=== PATIENT | female | born 1930 | race Caucasian/White ===

== ENCOUNTER → 2016-11-14 | Outpatient (CLI) | payer MEDICARE, BC ==
[~2016-11-14] MED LIST: ALBU17I INH; ASPI1TAB69 PO; ASPI81 PO; ATEN1TAB74 PO; ATEN50TA PO; JANU50TA4 PO; JANU50TA9 PO; PRED50 PO; PRED50TA PO; RAMI5CAP PO; RAMI5CAP7 PO; ROBIACUDC PO; SIMV40TA PO; ZOCO40TA PO
[2016-11-14 10:03] LABS: ALKALINE PHOSPHATASE 61 U/L (45-117); ALT (GPT) 22 U/L (10-53); ANION GAP 8 MEQ/L (5-15); AST (GOT) 13 U/L (15-37); BICARBONATE 24.9 MEQ/L (21.0-32.0); BLOOD UREA NITROGEN 15 MG/DL (7-18); CHLORIDE 109 MEQ/L (98-107); GLOMERULAR FILTRATION RATE 60 ML/MIN (>89); GLUCOSE,FASTING 153 MG/DL (74-99); POTASSIUM 4.1 MEQ/L (3.5-5.1); SODIUM (NA) 142 MEQ/L (136-145); TOTAL BILIRUBIN ADULT 0.4 MG/DL (0.2-1.0)
[2016-11-14 16:04] LABS: HEMOGLOBIN A1a 1.3 %; HEMOGLOBIN A1b 2.2 %; HEMOGLOBIN Ao 82.9 %; HEMOGLOBIN LA1C 2.3 %; HEMOGLOBIN P3 4.2 %
== END ==
LOC: PLAB 06:54
PROVIDERS: ATTEND Family Medicine
DX: E11.9 Type 2 diabetes mellitus without complications (principal)
CPT/HCPCS: 36415; 80053; 83036

== ENCOUNTER 2016-11-25 15:09 | Observation (INO) | payer MEDICARE, BC ==
[~2016-11-25] VITALS: Ht 160 cm; Wt 67.2 kg
[2016-11-25] VITALS (8 sets, daily range): BP systolic 116–149; BP diastolic 69–80; PULSE 68–79; RESP 16–24; TEMP 96.8–98.2; O2SAT 94–98
[~2016-11-25 15:09] MED LIST changes: -ASPI1TAB69 PO; -ATEN50TA PO; -JANU50TA4 PO; -PRED50 PO; -RAMI5CAP PO; -SIMV40TA PO
--- NOTE | 2016-11-25 15:48 | PD ---
HPI Chief Complaint: Dizziness Time Seen by Provider: 15:45 Travel History International Travel<30 days: No Contact w/Intl Traveler<30days: No Traveled to known affect area: No History of Present Illness HPI This 86-year-old female says she had an onset of shortness of breath and chest heaviness about 2 hours ago. She was at rest when it started. The heaviness in the shortness of breath have been persistent until now.. She is not aware of any fever or chills. She has had a cough for a couple of days. She saw her doctor last Saturday for routine checkup and everything was okay then. She does have a history of diabetes and hypertension. She has no history of heart disease. She has never smoked. She has no history of blood clots PFSH Past Medical History High Cholesterol: Yes Diabetes: Yes Diminished Hearing: No Hypertension: Yes Menopausal: Yes Past Surgical History Cholecystectomy: Yes Social History Alcohol Use: No Tobacco Use: No Substance Use: No Allergies-Medications (Allergen,Severity, Reaction): Coded Allergies: Septra (Verified Allergy, Unknown, 11/25/16) PT STATES NOT ALLERGIC. Reported Meds & Prescriptions Reported Meds & Active Scripts Active Robitussin Ac Udc (Guaifenesin/Codeine Phosphate) 10 Ml Syrp 10 Ml PO Q6H PRN Deltasone (Prednisone) 50 Mg Tab 50 Mg PO DAILY Proventil Mdi (Albuterol Sulfate) 17 Gm Aero 2 Puff INH QID PRN Reported Zocor (Simvastatin) 40 Mg Tab 40 Mg PO HS Aspirin 81 Mg Tab 81 Mg PO DAILY Janumet (Sitagliptin Phosphate/Metformin HCl) 1 Tab Tab 1 Tab PO BID ADMINISTER WITH MEALS Altace (Ramipril) 5 Mg Cap 5 Mg PO Tenormin (Atenolol) 50 Mg Tab 50 Mg PO Review of Systems General / Constitutional: No: Fever Eyes: No: Diploplia HENT: No: Headaches, Vertigo Cardiovascular: Positive: Chest Pain or Discomfort (heaviness), No: Irregular Rhythm Respiratory: Positive: Cough, Shortness of Breath, No: Wheezing, Orthopnea Gastrointestinal: No: Vomiting, Diarrhea Genitourinary: No: Urgency, Frequency Musculoskeletal: No: Myalgias Psychiatric: No: Anxiety Hematologic/Lymphatic: No: Easy Bruising Physical Exam Narrative GENERAL: Well-developed female. She is having labored respirations on arrival SKIN: Warm and dry. HEAD: Atraumatic. Normocephalic. EYES: Pupils equal and round. No scleral icterus. No injection or drainage. ENT: No nasal bleeding or discharge. Mucous membranes pink and moist. NECK: Trachea midline. No JVD. CARDIOVASCULAR: Regular rate and rhythm. No murmur appreciated. RESPIRATORY: No accessory muscle use. Clear to auscultation. Breath sounds equal bilaterally. GASTROINTESTINAL: Abdomen soft, non-tender, nondistended. Hepatic and splenic margins not palpable. MUSCULOSKELETAL: No obvious deformities. No clubbing. No cyanosis. No edema. NEUROLOGICAL: Awake and alert. No obvious cranial nerve deficits. Motor grossly within normal limits. Normal speech. PSYCHIATRIC: Appropriate mood and affect; insight and judgment normal. Data Data Last Documented VS Vital Signs Date Time Temp Pulse Resp B/P Pulse Ox O2 Delivery O2 Flow Rate FiO2 11/25/16 16:02 74 18 131/70 95 Room Air 11/25/16 15:33 97.5 Orders Electrocardiogram (11/25/16 15:45) Complete Blood Count With Diff (11/25/16 15:45) Comprehensive Metabolic Panel (11/25/16 15:45) Troponin I (11/25/16 15:45) B-Type Natriuretic Peptide (11/25/16 15:45) Prothrombin Time / Inr (Pt) (11/25/16 15:45) Act Partial Throm Time (Ptt) (11/25/16 15:45) D-Dimer (11/25/16 15:45) Magnesium (Mg) (11/25/16 15:45) Chest, Pa & Lat (11/25/16 15:45) Influenzae A/B Antigen (11/25/16 15:48) Arterial Blood Gas (Abg) (11/25/16 16:55) Labs Laboratory Tests Test 11/25/16 11/25/16 15:50 17:03 White Blood Count 9.9 TH/MM3 Red Blood Count 4.74 MIL/MM3 Hemoglobin 14.4 GM/DL Hematocrit 42.9 % Mean Corpuscular Volume 90.5 FL Mean Corpuscular Hemoglobin 30.5 PG Mean Corpuscular Hemoglobin 33.7 % Concent Red Cell Distribution Width 12.3 % Platelet Count 258 TH/MM3 Mean Platelet Volume 8.4 FL Neutrophils (%) (Auto) 49.5 % Lymphocytes (%) (Auto) 35.6 % Monocytes (%) (Auto) 7.0 % Eosinophils (%) (Auto) 4.8 % Basophils (%) (Auto) 3.1 % Neutrophils # (Auto) 4.9 TH/MM3 Lymphocytes # (Auto) 3.5 TH/MM3 Monocytes # (Auto) 0.7 TH/MM3 Eosinophils # (Auto) 0.5 TH/MM3 Basophils # (Auto) 0.3 TH/MM3 CBC Comment DIFF FINAL Differential Comment Prothrombin Time 10.1 SEC Prothromb Time International 0.9 RATIO Ratio Activated Partial 23.9 SEC Thromboplast Time D-Dimer Quantitative (PE/DVT) 0.46 MG/L FEU Sodium Level 142 MEQ/L Potassium Level 3.8 MEQ/L Chloride Level 108 MEQ/L Carbon Dioxide Level 25.1 MEQ/L Anion Gap 9 MEQ/L Blood Urea Nitrogen 14 MG/DL Creatinine 0.86 MG/DL Estimat Glomerular Filtration 63 ML/MIN Rate Random Glucose 121 MG/DL Calcium Level 9.2 MG/DL Magnesium Level 2.1 MG/DL Total Bilirubin 0.4 MG/DL Aspartate Amino Transf 13 U/L (AST/SGOT) Alanine Aminotransferase 22 U/L (ALT/SGPT) Alkaline Phosphatase 63 U/L Troponin I LESS THAN 0.02 NG/ML B-Type Natriuretic Peptide 24 PG/ML Total Protein 7.2 GM/DL Albumin 3.8 GM/DL Blood Gas Puncture Site LT RADIAL Blood Gas Patient Temperature 98.6 Blood Gas HCO3 21 mmol/L Blood Gas Base Excess -1.7 mmol/L Blood Gas Oxygen Saturation 97 % Arterial Blood pH 7.55 Arterial Blood Partial 24 mmHG Pressure CO2 Arterial Blood Partial 88 mmHG Pressure O2 Arterial Blood Oxygen Content 18.6 Vol % Arterial Blood 1.6 % Carboxyhemoglobin Arterial Blood Methemoglobin 1.1 % Blood Gas Hemoglobin 13.6 G/DL Oxygen Delivery Device ROOM AIR Blood Gas Inspired Oxygen 21 % [facility] Medical Decision Making Medical Screen Exam Complete: Yes Emergency Medical Condition: Yes Medical Record Reviewed: Yes Differential Diagnosis Differential includes CHF, coronary artery disease, anxiety, Narrative Course Chest x-ray is negative. Troponin is normal. BNP is normal. D-dimer is also normal patient continued to have some labored breathing. A blood gas was done and shows pH of 7.54 PCO2 23 and PO2 of 87. She has not been taking aspirin. He does describe a persistent heaviness in her chest. She'll be admitted to the chest pain center Diagnosis Primary Impression: Chest heaviness Additional Impression: Dyspnea Qualified Code: R06.00 - Dyspnea, unspecified type Admitting Information Admitting Physician Requests: Jefferson Serrano MD Nov 25, 2016 15:48
[2016-11-25 16:09] LABS: AUTOMATED NEUTROPHIL # 4.9 TH/MM3 (1.8-7.7); BASOPHIL # 0.3 TH/MM3 (0-0.2); BASOPHIL % 3.1 % (0.0-2.0); EOSINOPHIL # 0.5 TH/MM3 (0-0.4); EOSINOPHIL % 4.8 % (0.0-4.0); HEMATOCRIT 42.9 % (35.0-46.0); HEMO FLAGS DIFF FINAL; LYMPH % 35.6 % (9.0-44.0); LYMPHOCYTE # 3.5 TH/MM3 (1.0-4.8); MEAN CELL VOLUME 90.5 FL (80.0-100.0); MEAN CORPUSCULAR HEMOGLOBIN 30.5 PG (27.0-34.0); MEAN CORPUSCULAR HGB CONC 33.7 % (32.0-36.0); NEUT % 49.5 % (16.0-70.0); PLATELET COUNT 258 TH/MM3 (150-450); RED BLOOD COUNT 4.74 MIL/MM3 (4.00-5.30); RED CELL DISTRIBUTION WIDTH 12.3 % (11.6-17.2); WHITE BLOOD COUNT 9.9 TH/MM3 (4.0-11.0)
[2016-11-25 16:31] LABS: CHLORIDE 108 MEQ/L (98-107); POTASSIUM 3.8 MEQ/L (3.5-5.1); SODIUM (NA) 142 MEQ/L (136-145)
[2016-11-25 16:34] LABS: ANION GAP 9 MEQ/L (5-15); BICARBONATE 25.1 MEQ/L (21.0-32.0); BLOOD UREA NITROGEN 14 MG/DL (7-18); MAGNESIUM 2.1 MG/DL (1.5-2.5)
[2016-11-25 16:37] LABS: ALT (GPT) 22 U/L (10-53); AST (GOT) 13 U/L (15-37); GLOMERULAR FILTRATION RATE 63 ML/MIN (>89)
[2016-11-25 16:39] LABS: TOTAL BILIRUBIN ADULT 0.4 MG/DL (0.2-1.0)
[2016-11-25 16:40] LABS: ALKALINE PHOSPHATASE 63 U/L (45-117)
[2016-11-25 16:58] LABS: APTT (PATIENT) 23.9 SEC (24.3-30.1); INTERNATIONAL NORMALIZED RATIO 0.9 RATIO; PROTHROMBIN TIME - PATIENT 10.1 SEC (9.8-11.6)
--- NOTE | 2016-11-25 17:03 | RADHPO ---
EXAM DATE/TIME: 11/25/2016 16:36 [facility] COMPARISON: No previous studies available for comparison. INDICATIONS : Short of breath MEDICAL HISTORY : None. SURGICAL HISTORY : None. ENCOUNTER: Initial ACUITY: 1 day PAIN SCORE: 0/10 LOCATION: Bilateral chest FINDINGS: PA and lateral views of the chest demonstrate the lungs to be symmetrically aerated without evidence of mass, infiltrate or effusion. The cardiomediastinal contours are unremarkable. Osseous structure s are intact.CONCLUSION: No acute disease. Bryce Cintron MD FACR on November 25, 2016 at 17:02 Board Certified Radiologist. This report was verified electronically.
[2016-11-25 17:11] LABS: BLOOD GAS BASE EXCESS -1.7 mmol/L (-2-2); BLOOD GAS CARBOXYHEMOGLOBIN 1.6 % (0-4); BLOOD GAS HCO3 21 mmol/L (22-26); BLOOD GAS METHEMOGLOBIN 1.1 % (0-2); BLOOD GAS O2 HGB SATURATION 97 % (90-100); BLOOD GAS OXYGEN CONTENT 18.6 Vol % (12.0-20.0); BLOOD GAS PO2 88 mmHG (61-120); BLOOD GAS TOTAL HGB 13.6 G/DL (12.0-16.0); CRITICAL VALUE YES; DRAW SITE LT RADIAL; FIO2 21 %; NUMBER OF ARTERIAL PUNCTURES 1; OXYGEN DEVICE ROOM AIR; STAT YES; TEMP CORR TO 98.6; ULNAR PULSE PRESENT
[2016-11-25 17:12] LABS: BLOOD GAS PCO2 24 mmHG (38-42)
[2016-11-25] MEDS ORDERED: ASPIRIN 325 MG TAB PO ONE (17:45)
[2016-11-25] MEDS ORDERED: LORazepam 2 MG/ML VIAL IV PUSH ONE (17:45)
[2016-11-25] MEDS ORDERED: GLUCAGON 1 MG/ML VIAL OTHER PRN (18:15)
[2016-11-25] MEDS ORDERED: DEXTROSE 50% IN WATER 50 ML VIAL(D50) IV PUSH PRN (18:15)
[2016-11-25] MEDS ORDERED: SODIUM CHLORIDE 0.9% FLUSH 5 ML FLUSH FLUSH PRN (18:15)
[2016-11-25] MEDS: INSULIN ASPART SUPPLEMENTAL SCALE SQ SCH (20:44)
[2016-11-25] MEDS: SODIUM CHLORIDE 0.9% FLUSH 5 ML FLUSH FLUSH SCH (20:44)
[2016-11-25] MEDS ORDERED: ATEN50TA PO (21:11)
[2016-11-25] MEDS ORDERED: ASPI1TAB69 PO (21:11)
[2016-11-25] MEDS ORDERED: JANU50TA4 PO (21:12)
[2016-11-25] MEDS ORDERED: PRED50 PO (21:12)
[2016-11-25] MEDS ORDERED: SIMV40TA PO (21:13)
[2016-11-25] MEDS ORDERED: RAMI5CAP PO (21:13)
[2016-11-25 23:44] LABS: CREATINE KINASE 66 U/L (26-192)
[2016-11-26] VITALS: BP 133/80; PULSE 75; RESP 20; TEMP 96.6; O2SAT 94
[2016-11-26 00:10] VITALS: PULSE 76
[2016-11-26 04:00] VITALS: BP 134/81; PULSE 65; RESP 20; TEMP 96.8; O2SAT 96
[2016-11-26] MEDS: INSULIN ASPART SUPPLEMENTAL SCALE SQ SCH (06:31)
[2016-11-26 07:17] LABS: CREATINE KINASE 45 U/L (26-192)
[2016-11-26 08:00] VITALS: BP 124/80; PULSE 72; RESP 20; TEMP 97.7; O2SAT 95
[2016-11-26] MEDS: SODIUM CHLORIDE 0.9% FLUSH 5 ML FLUSH FLUSH SCH (08:48)
--- NOTE | 2016-11-26 10:47 | HHI.DCPOC ---
Discharge Care Plan Diagnosis: (1) Dyspnea Goals to Promote Your Health * To prevent worsening of your condition and complications * To maintain your health at the optimal level Directions to Meet Your Goals Take your medications as prescribed Follow your dietary instruction Follow activity as directed Keep your appointments as scheduled Take your immunizations and boosters as scheduled If your symptoms worsen call your PCP, if no PCP go to Urgent Care Center or Emergency Room Smoking is Dangerous to Your Health. Avoid second hand smoke Call the 24-hour hour crisis hotline for domestic abuse at Macrina Yousif MD Nov 26, 2016 10:47
--- NOTE | 2016-11-26 10:51 | HHI.HP ---
[facility] [place] [facility] Katie Rios MD Admission Diagnosis DYSPNEA, CHEST HEAVINESS Diagnoses: Chief Complaint: Shortness of breath Travel History International Travel<30 Days: No Contact w/Intl Traveler <30 Da: No Traveled to Known Affected Are: No History of Present Illness Patient is an 86-year-old female with no past cardiac history other than hypertension who came to the emergency room with acute onset of increased shortness of breath at work of breathing while at rest and suddenly in onset. There are no relieving or artery factors. This seemed to resolve on its own. She did have a blood gas, cardiac enzymes, EKG and chest x-ray which on my review are unremarkable for acute findings. Patient's symptoms recurred 6 years ago she had a heart catheterization without any cardiac findings. Patient this time appears to perhaps have had anxiety reaction. She reports increasing psychosocial stressors over the last several weeks. Care plan and discharge plans discussed with patient, nursing team and spouse at bedside. Review of Systems Constitutional: DENIES: Diaphoretic episodes, Fatigue, Fever, Weight gain, Weight loss, Chills, Dizziness, Change in appetite, Night Sweats Endocrine: DENIES: Heat/cold intolerance Eyes: DENIES: Blurred vision, Eye pain Ears, nose, mouth, throat: DENIES: Tinnitus, Hearing loss, Vertigo, Nasal discharge, Oral lesions, Throat pain, Hoarseness, Ear Pain, Running Nose, Epistaxis, Sinus Pain, Toothache, Odynophagia Respiratory: COMPLAINS OF: Shortness of breath, DENIES: Apneas, Cough, Snoring , Wheezing, Hemoptysis, Sputum production Cardiovascular: COMPLAINS OF: Palpitations, DENIES: Chest pain, Syncope, Dyspnea on Exertion, PND, Lower Extremity Edema, Orthopnea, Claudication Gastrointestinal: DENIES: Abdominal pain, Black stools, Bloody stools, Constipation, Diarrhea, Nausea, Vomiting, Difficulty Swallowing, Anorexia Genitourinary: DENIES: Abnormal vaginal bleeding, Dysmenorrhea, Dyspareunia, Sexual dysfunction, Urinary frequency, Urinary incontinence, Urgency, Hematuria , Dysuria, Nocturia, Vaginal discharge Musculoskeletal: DENIES: Joint pain, Muscle aches, Stiffness, Joint Swelling, Back pain, Neck pain Integumentary: DENIES: Abnormal pigmentation, Pruritus, Rash, Nail changes, Breast masses, Breast skin changes, Nipple discharge Hematologic/lymphatic: DENIES: Bruising, Lymphadenopathy Immunologic/allergic: DENIES: Eczema, Urticaria Neurologic: DENIES: Abnormal gait, Headache, Localized weakness, Paresthesias, Seizures, Speech Problems, Tremor, Poor Balance Psychiatric: DENIES: Anxiety, Confusion, Mood changes, Depression, Hallucinations, Agitation, Suicidal Ideation, Homicidal Ideation, Delusions Past Family Social History Past Medical History Diabetes hypertension Diabetes Past Surgical History Cholecystectomy Reported Medications Reviewed in the medical record Allergies: Coded Allergies: Septra (Verified Allergy, Unknown, 11/25/16) PT STATES NOT ALLERGIC. Active Ordered Medications Reviewed in the the medical record Family History No family history of premature cardiac disease per patient Social History No tobacco or alcohol dependency, lives with her family Physical Exam Vital Signs Vital Signs Date Time Temp Pulse Resp B/P Pulse Ox O2 Delivery O2 Flow Rate FiO2 11/26/16 08:00 97.7 72 20 124/80 95 11/26/16 08:00 72 11/26/16 04:00 96.8 65 20 134/81 96 11/26/16 00:10 76 11/26/16 00:00 96.6 75 20 133/80 94 11/25/16 20:44 72 18 129/69 95 11/25/16 20:25 94 21 11/25/16 20:00 96.8 68 16 149/80 95 11/25/16 19:10 18 95 Room Air 11/25/16 19:10 98.2 78 18 125/71 95 Room Air 11/25/16 18:18 72 18 139/77 97 11/25/16 18:01 77 24 142/72 98 Room Air 11/25/16 16:02 74 18 131/70 95 Room Air 11/25/16 15:59 98 Room Air 11/25/16 15:33 97.5 79 16 116/76 98 Physical Exam GENERAL: This is a well-nourished, well-developed patient, in no apparent distress. SKIN: No rashes, ecchymoses or lesions. Cool and dry. HEAD: Atraumatic. Normocephalic. No temporal or scalp tenderness. EYES: Pupils equal round and reactive. Extraocular motions intact. No scleral icterus. No injection or drainage. ENT: Nose without bleeding, purulent drainage or septal hematoma. Throat without erythema, tonsillar hypertrophy or exudate. Uvula midline. Airway patent. NECK: Trachea midline. No JVD or lymphadenopathy. Supple, nontender, no meningeal signs. CARDIOVASCULAR: Regular rate and rhythm without murmurs, gallops, or rubs. RESPIRATORY: Clear to auscultation. Breath sounds equal bilaterally. No wheezes , rales, or rhonchi. GASTROINTESTINAL: Abdomen soft, non-tender, nondistended. No hepato-splenomegaly , or palpable masses. No guarding. MUSCULOSKELETAL: Extremities without clubbing, cyanosis, or edema. No joint tenderness, effusion, or edema noted. No calf tenderness. Negative Homans sign bilaterally. NEUROLOGICAL: Awake and alert. Cranial nerves II through XII intact. Motor and sensory grossly within normal limits. Five out of 5 muscle strength in all muscle groups. Normal speech. Laboratory Laboratory Tests Test 11/25/16 11/25/16 11/25/16 11/26/16 15:50 17:03 22:52 05:50 White Blood Count 9.9 Red Blood Count 4.74 Hemoglobin 14.4 Hematocrit 42.9 Mean Corpuscular Volume 90.5 Mean Corpuscular Hemoglobin 30.5 Mean Corpuscular Hemoglobin 33.7 Concent Red Cell Distribution Width 12.3 Platelet Count 258 Mean Platelet Volume 8.4 Neutrophils (%) (Auto) 49.5 Lymphocytes (%) (Auto) 35.6 Monocytes (%) (Auto) 7.0 Eosinophils (%) (Auto) 4.8 Basophils (%) (Auto) 3.1 Neutrophils # (Auto) 4.9 Lymphocytes # (Auto) 3.5 Monocytes # (Auto) 0.7 Eosinophils # (Auto) 0.5 Basophils # (Auto) 0.3 CBC Comment DIFF FINAL Differential Comment Prothrombin Time 10.1 Prothromb Time International 0.9 Ratio Activated Partial 23.9 Thromboplast Time D-Dimer Quantitative (PE/DVT) 0.46 Sodium Level 142 Potassium Level 3.8 Chloride Level 108 Carbon Dioxide Level 25.1 Anion Gap 9 Blood Urea Nitrogen 14 Creatinine 0.86 Estimat Glomerular Filtration 63 Rate Random Glucose 121 Calcium Level 9.2 Magnesium Level 2.1 Total Bilirubin 0.4 Aspartate Amino Transf 13 (AST/SGOT) Alanine Aminotransferase 22 (ALT/SGPT) Alkaline Phosphatase 63 Troponin I LESS THAN 0.02 LESS THAN 0.02 LESS THAN 0.02 B-Type Natriuretic Peptide 24 Total Protein 7.2 Albumin 3.8 Blood Gas Puncture Site LT RADIAL Blood Gas Patient Temperature 98.6 Blood Gas HCO3 21 Blood Gas Base Excess -1.7 Blood Gas Oxygen Saturation 97 Arterial Blood pH 7.55 Arterial Blood Partial 24 Pressure CO2 Arterial Blood Partial 88 Pressure O2 Arterial Blood Oxygen Content 18.6 Arterial Blood 1.6 Carboxyhemoglobin Arterial Blood Methemoglobin 1.1 Blood Gas Hemoglobin 13.6 Oxygen Delivery Device ROOM AIR Blood Gas Inspired Oxygen 21 Total Creatine Kinase 66 45 Date/Time Procedure Status Source Growth 11/25/16 15:57 Influenza Types A,B Antigen (SHANA) - Final Complete Nasal Washing NEGATIVE FOR FLU A AND B ANTIGEN.... Result Diagram: 11/25/16 1550 11/25/16 1550 Imaging Last Impressions Chest X-Ray 11/25/16 1545 Signed Impressions: Service Date/Time: Friday, November 25, 2016 16:36 - CONCLUSION: No acute disease. Bryce Cintron MD FACR Assessment and Plan Problem List: (1) Dyspnea ICD Code: R06.00 Status: Acute Plan: Issues appear resolved. No findings of acute cardiac or pulmonary disease at this time. Patient seems to perhaps have had anxiety reaction. Discussed at length with patient and spouse. They will need to follow-up with her primary care physician. Assessment and Plan Discharge home Activity unrestricted Diet regular Follow with PCP 1 week Problem Qualifiers (1) Dyspnea: Qualified Code: R06.00 - Dyspnea, unspecified type Macrina Yousif MD Nov 26, 2016 10:51
--- NOTE | 2016-11-26 19:37 | EKG ---
Date Performed: 11/25/2016 Time Performed: 15:39:10 PTAGE: 86 years EKG: Sinus rhythm . Leftward axis Inferior ST changes are nonspecific Borderline ECG PREVIOUS TRACING : 12/03/2009 08.42 DOCTOR: Miguel A Pittman Interpretating Date/Time 11/26/2016 19:33:29
== END 2016-11-26 11:30 | disposition home or self-care (01) ==
LOC: PHEFT 15:09 → PHEDA 18:01 → PH3A 21:37
PROVIDERS: ADMIT Hospitalist; ATTEND Hospitalist
DX: R07.9 Chest pain, unspecified (principal); R42 Dizziness and giddiness; I10 Essential (primary) hypertension; R94.31 Abnormal electrocardiogram [ECG] [EKG]; E11.9 Type 2 diabetes mellitus without complications; E78.00 Pure hypercholesterolemia, unspecified; Z79.84 Long term (current) use of oral hypoglycemic drugs
CPT/HCPCS: 36600; 71020; 80053; 82550; 82805; 82948; 83735; 83880; 84484; 85025; 85379; 85610; 85730; 87804; 93005; 96374; 99285; G0378; J2060

== ENCOUNTER → 2017-05-01 | Outpatient (CLI) | payer MEDICARE, BC ==
[~2017-05-01] MED LIST changes: -ALBU17I INH; +ASPI1TAB69 PO; -ASPI81 PO; -ATEN1TAB74 PO; +ATEN50TA PO; +JANU50TA4 PO; -JANU50TA9 PO; +PRED50 PO; -PRED50TA PO; +RAMI5CAP PO; -RAMI5CAP7 PO; -ROBIACUDC PO; +SIMV40TA PO; -ZOCO40TA PO
[2017-05-01 09:49] LABS: ANION GAP 8 MEQ/L (5-15); BICARBONATE 26.3 MEQ/L (21.0-32.0); BLOOD UREA NITROGEN 14 MG/DL (7-18); CHLORIDE 106 MEQ/L (98-107); GLUCOSE,FASTING 146 MG/DL (74-99); POTASSIUM 4.6 MEQ/L (3.5-5.1); SODIUM (NA) 140 MEQ/L (136-145)
[2017-05-01 09:55] LABS: ALKALINE PHOSPHATASE 54 U/L (45-117); ALT (GPT) 26 U/L (10-53); AST (GOT) 17 U/L (15-37); GLOMERULAR FILTRATION RATE 70 ML/MIN (>89); TOTAL BILIRUBIN ADULT 0.7 MG/DL (0.2-1.0)
[2017-05-01 09:57] LABS: HDL CHOLESTEROL 65.1 MG/DL (40.0-60.0)
[2017-05-01 10:15] LABS: LDL CHOLESTEROL 38 MG/DL (0-99)
[2017-05-01 13:20] LABS: BACTERIA, URINE OCC /hpf; BLOOD, URINE NEG (NEG); COMMENT (UR) CULT NOT INDICATED; CULTURE IF INDICATED CULT NOT INDICATED; GLUCOSE,URINE NEG (NEG); KETONE, URINE NEG (NEG); MUCUS URINE FEW /lpf (OCC); NITRITE,URINE NEG (NEG); SQUAMOUS EPITHELIAL CELL URINE 7 /hpf (0-5); URINE COLOR YELLOW (YELLW/STRAW)
[2017-05-01 16:47] LABS: HEMOGLOBIN A1a 1.2 %; HEMOGLOBIN A1b 1.3 %; HEMOGLOBIN Ao 82.5 %; HEMOGLOBIN F 1.1 %; HEMOGLOBIN LA1C 2.4 %; HEMOGLOBIN P3 4.1 %
== END ==
LOC: PLAB 06:44
PROVIDERS: ATTEND Family Medicine
DX: I10 Essential (primary) hypertension (principal); E78.5 Hyperlipidemia, unspecified; E11.9 Type 2 diabetes mellitus without complications
CPT/HCPCS: 36415; 80053; 80061; 81001; 83036

== ENCOUNTER 2017-05-21 12:10 | Emergency (ER) | payer MEDICARE, BC ==
[2017-05-21 12:18] VITALS: BP 131/64; PULSE 84; RESP 15; TEMP 99.6; O2SAT 94
--- NOTE | 2017-05-21 12:55 | PD ---
HPI Chief Complaint: Fever Time Seen by Provider: 12:43 Travel History International Travel<30 days: No Contact w/Intl Traveler<30days: No Traveled to known affect area: No History of Present Illness HPI PATIENT STATES THAT SHE IS HERE BECAUSE SHE'S HAD PROD COUGH OF GREEN SPUTUM, LOW GRADE FEVERS OF 101, STATES THAT SHE DOESN'T FEEL WELL...DENIES N/V/D/ PFSH Past Medical History High Cholesterol: Yes Diabetes: Yes Diminished Hearing: No Hypertension: Yes Menopausal: Yes Past Surgical History Cholecystectomy: Yes Social History Alcohol Use: No Tobacco Use: No Substance Use: No Allergies-Medications (Allergen,Severity, Reaction): Coded Allergies: Septra (Verified Allergy, Unknown, 05/21/17) PT STATES NOT ALLERGIC. Reported Meds & Prescriptions Reported Meds & Active Scripts Active Medrol Dosepak (Methylprednisolone) 4 Mg Dspk 4 Mg PO DIRECTED Per Pharmacist direction Ciprofloxacin (Ciprofloxacin HCl) 500 Mg Tab 500 Mg PO BID Proventil Hfa 6.7 GM Inh (Albuterol Sulfate) 90 Mcg/Act Aer 1 Puff INH Q4H PRN Reported Aspirin 81 Mg Chew 81 Mg CHEW DAILY Glipizide ER (Glipizide) 2.5 Mg Ralf 2.5 Mg PO DAILY Take with breakfast or first main meal of the day Nitrofurantoin Monohydrate Macrocrystals (Nitrofurantoin Monoh/Nitrofur Macro) 100 Mg Cap 100 Mg PO BID Simvastatin 40 Mg Tab 20 Mg PO HS Ramipril 5 Mg Cap 5 Mg PO DAILY Prednisone 50 Mg Tab 50 Mg PO DAILY Janumet (Sitagliptin-Metformin) 50-500 Mg Tab 1 Tab PO BID Atenolol 50 Mg Tab 50 Mg PO DAILY Review of Systems Except as stated in HPI: all other systems reviewed are Neg General / Constitutional: Positive: Fever, Chills Respiratory: Positive: Cough Physical Exam Narrative GENERAL: SKIN: Warm and dry. HEAD: Atraumatic. Normocephalic. EYES: Pupils equal and round. No scleral icterus. No injection or drainage. ENT: No nasal bleeding or discharge. Mucous membranes pink and moist. NECK: Trachea midline. No JVD. CARDIOVASCULAR: Regular rate and rhythm. RESPIRATORY: No accessory muscle use. RONCHI BILATERALLY GASTROINTESTINAL: Abdomen soft, non-tender, nondistended. Hepatic and splenic margins not palpable. MUSCULOSKELETAL: Extremities without clubbing, cyanosis, or edema. No obvious deformities. NEUROLOGICAL: Awake and alert. No obvious cranial nerve deficits. Motor grossly within normal limits. Five out of 5 muscle strength in the arms and legs. Normal speech. PSYCHIATRIC: Appropriate mood and affect; insight and judgment normal. Data Data Last Documented VS Vital Signs Date Time Temp Pulse Resp B/P Pulse Ox O2 Delivery O2 Flow Rate FiO2 05/21/17 12:44 16 05/21/17 12:18 99.6 84 131/64 94 Orders Urinalysis - C+S If Indicated (05/21/17 12:47) Group A Rapid Strep Screen (05/21/17 12:47) Influenzae A/B Antigen (05/21/17 12:47) Chest, Pa & Lat (05/21/17 12:47) Strep Culture (Group A) (05/21/17 12:50) Urine Culture (05/21/17 12:50) Labs Laboratory Tests Test 05/21/17 12:50 Urine Collection Type CLEAN CATCH Urine Color YELLOW Urine Turbidity SLIGHTY CLOUDY Urine pH 5.5 Urine Specific Page 1.015 Urine Protein NEG mg/dL Urine Glucose (UA) NEG mg/dL Urine Ketones NEG mg/dL Urine Occult Blood NEG Urine Nitrite NEG Urine Bilirubin NEG Urine Leukocyte Esterase MOD Urine RBC 0-3 /hpf Urine WBC 3-5 /hpf Urine Squamous Epithelial 0-5 /hpf Cells Urine Bacteria MOD /hpf Microscopic Urinalysis Comment CULTURE INDICATED MDM Medical Decision Making Medical Screen Exam Complete: Yes Emergency Medical Condition: Yes Medical Record Reviewed: Yes Differential Diagnosis FLU V PNA V STREP V VIRAL ILLNESS Narrative Course PT EVALUATED FOUND TO HAVE UTI, STREP AND FLU NEG, AND CXR SHOWS SOME SLIGHT EARLY INFILTRATES ON RLL WITHOUT CONSOLIDATION Diagnosis Primary Impression: ACUTE BACTERIAL BRONCHITIS Additional Impression: UTI Scripts Fluconazole (Diflucan)150 Mg [id number] Mg PO ONCE #1 TAB Ref 0 Prov:Ethan Engle MD 05/21/17 Methylprednisolone Dosepak (Medrol Dosepak)4 Mg Dspk4 Mg PO DIRECTED #1 DSPK Per Pharmacist direction Prov:Ethan Engle MD 05/21/17 Ciprofloxacin 500 Mg [id number] Mg PO BID #20 TAB Prov:Ethan Engle MD 05/21/17 Albuterol 6.7 GM Inh (Proventil Hfa 6.7 GM Inh)90 Mcg/Act Aer1 Puff INH Q4H PRN (SHORTNESS OF BREATH) #1 INHALER Prov:Ethan Engle MD 05/21/17 Disposition: 01 DISCHARGE HOME Condition: Stable Ethan Engle MD May 21, 2017 12:55
[2017-05-21] MEDS ORDERED: NITR100C4 PO (13:23)
[2017-05-21] MEDS ORDERED: ASPI81CH CHEW (13:23)
[2017-05-21] MEDS ORDERED: GLIP1TAB60 PO (13:23)
[2017-05-21 13:29] VITALS: BP 121/71; PULSE 53; RESP 16; O2SAT 96
[2017-05-21 13:35] LABS: BLOOD, URINE NEG (NEG); GLUCOSE,URINE NEG (NEG); KETONE, URINE NEG (NEG); NITRITE,URINE NEG (NEG); PH, URINE 5.5 (5.0-8.5)
[2017-05-21 13:46] LABS: METHOD OF COLLECTION CLEAN CATCH; URINE COLOR YELLOW (YELLW/STRAW)
[2017-05-21 13:47] LABS: BACTERIA, URINE MOD /hpf; COMMENT (UR) CULTURE INDICATED; CULTURE IF INDICATED CULTURE INDICATED; RBC, URINE 0-3 /hpf (0-3); SQUAMOUS EPITHELIAL CELL URINE 0-5 /hpf (0-5)
[2017-05-21] MEDS ORDERED: MEDR4PAK PO (14:24)
[2017-05-21] MEDS ORDERED: CIPR500T2 PO (14:24)
[2017-05-21] MEDS ORDERED: ALBU6.7H INH (14:24)
[2017-05-21] MEDS ORDERED: DIFL150T PO (14:32)
--- NOTE | 2017-05-21 15:11 | RADRPT ---
EXAM DATE/TIME: 05/21/2017 13:05 [facility] COMPARISON: CHEST PA & LAT, November 25, 2016, 16:36. INDICATIONS : Cough, fever, and dizziness since this morning. MEDICAL HISTORY : None. SURGICAL HISTORY : None. ENCOUNTER: Initial ACUITY: 1 day PAIN SCORE: 0/10 LOCATION: Bilateral chest FINDINGS: The lungs are clear without infiltrate, nodule, or mass. There is no appreciable pleural effusion fo r technique. Heart and mediastinum are unremarkable. There are degenerative changes within the thora cic spine and the bony structures appear slightly osteopenic. There are atherosclerotic calcification s of the aorta due to chronic atherosclerotic disease. CONCLUSION: No acute cardiopulmonary disease. Narcisa Saucedo MD on May 21, 2017 at 15:09 Board Certified Radiologist. This report was verified electronically.
== END 2017-05-21 14:51 | disposition home or self-care (01) ==
LOC: PHED 12:10
DX: J20.8 Acute bronchitis due to other specified organisms (principal); B95.4 Other streptococcus as the cause of diseases classified elsewhere; N39.0 Urinary tract infection, site not specified; I10 Essential (primary) hypertension
CPT/HCPCS: 71020; 81001; 87081; 87086; 87804; 87880; 99284

== ENCOUNTER → 2017-05-29 | Outpatient (CLI) | payer MEDICARE, BC ==
[~2017-05-29] MED LIST changes: +ALBU6.7H INH; -ASPI1TAB69 PO; +ASPI81CH CHEW; +CIPR500T2 PO; +DIFL150T PO; +GLIP1TAB60 PO; +MEDR4PAK PO; +NITR100C4 PO
== END ==
LOC: PLAB 09:28
PROVIDERS: ATTEND Family Medicine
DX: N39.0 Urinary tract infection, site not specified (principal)
CPT/HCPCS: 87086

== ENCOUNTER → 2017-07-08 | Outpatient (CLI) | payer MEDICARE, BC ==
[~2017-07-08] MED LIST changes: +AUGM875T3 PO
[2017-07-08 08:52] LABS: PROTHROMBIN TIME - PATIENT 10.7 SEC (9.8-11.6)
[2017-07-08 09:37] LABS: AUTOMATED NEUTROPHIL # 3.7 TH/MM3 (1.8-7.7); BASOPHIL % 0.7 % (0.0-2.0); EOSINOPHIL # 0.3 TH/MM3 (0-0.4); HEMO FLAGS DIFF FINAL; LYMPH % 39.8 % (9.0-44.0); MEAN CELL VOLUME 90.7 FL (80.0-100.0); MEAN CORPUSCULAR HEMOGLOBIN 30.4 PG (27.0-34.0); MEAN CORPUSCULAR HGB CONC 33.5 % (32.0-36.0); MONO % 5.5 % (0.0-8.0); PLATELET COUNT 210 TH/MM3 (150-450); RED BLOOD COUNT 4.52 MIL/MM3 (4.00-5.30); RED CELL DISTRIBUTION WIDTH 13.8 % (11.6-17.2); WHITE BLOOD COUNT 7.5 TH/MM3 (4.0-11.0)
[2017-07-08 10:08] LABS: ANION GAP 5 MEQ/L (5-15); AST (GOT) 17 U/L (15-37); BICARBONATE 28.3 MEQ/L (21.0-32.0); BLOOD UREA NITROGEN 12 MG/DL (7-18); CHLORIDE 108 MEQ/L (98-107); GLOMERULAR FILTRATION RATE 67 ML/MIN (>89); GLUCOSE,FASTING 164 MG/DL (74-99); POTASSIUM 4.3 MEQ/L (3.5-5.1); SODIUM (NA) 141 MEQ/L (136-145)
[2017-07-08 10:10] LABS: ALT (GPT) 26 U/L (10-53)
[2017-07-08 10:12] LABS: ALKALINE PHOSPHATASE 46 U/L (45-117); TOTAL BILIRUBIN ADULT 0.7 MG/DL (0.2-1.0)
[2017-07-08 13:42] LABS: BACTERIA, URINE MOD /hpf; BLOOD, URINE NEG (NEG); COMMENT (UR) CULTURE INDICATED; CULTURE IF INDICATED CULTURE INDICATED; GLUCOSE,URINE TRACE mg/dL (NEG); KETONE, URINE NEG (NEG); MUCUS URINE FEW /lpf (OCC); NITRITE,URINE NEG (NEG); SQUAMOUS EPITHELIAL CELL URINE 9 /hpf (0-5); URINE COLOR YELLOW (YELLW/STRAW)
[2017-07-08 15:32] LABS: HEMOGLOBIN A1a 1.3 %; HEMOGLOBIN A1b 2.4 %; HEMOGLOBIN Ao 82.2 %; HEMOGLOBIN LA1C 2.6 %
== END ==
LOC: PLAB 07:04
PROVIDERS: ATTEND Family Medicine
DX: E11.9 Type 2 diabetes mellitus without complications (principal); I10 Essential (primary) hypertension; R82.99 Other abnormal findings in urine; Z01.818 Encounter for other preprocedural examination
CPT/HCPCS: 36415; 80053; 81001; 83036; 85025; 85610; 87086

== ENCOUNTER → 2017-07-17 | Day surgery (SDC) | payer MEDICARE, BC ==
[~2017-07-17] MED LIST changes: +CHLORHEXIDINE GLUCONATE 2 % 1 PACK (2 CLOTHS) TOPICAL PRN; +DEXAMETHASONE SOD PHOS 4 MG/ML VIAL ONE; +FAMOTIDINE 20 MG/2 ML VIAL ONE; +INSULIN HUMAN REGULAR 1,000 UNITS/10 ML VIAL SQ PRN; +LACTATED RINGER'S 1000 ML INJ 1,000 ML IV ONE; +LACTATED RINGER'S 1000 ML IV PRN; +METOPROLOL TARTRATE 25 MG TAB PO PRN; +MIDAZOLAM HCL 2 MG/2 ML VIAL ONE; +ONDANSETRON HCL 4 MG/2 ML VIAL IV PUSH ONE; +PHENYLEPH/NS 1000 MCG/10 ML SYR IV ONE; +POVIDONE IODINE 5% (ANTISEPSIS KIT) 4 APPLICATIONS EACH NARE PRN; +PROMETHAZINE INJ 25 MG/ML VIAL ONE; +PROPOFOL 200 MG/20 ML AMP IV ONE; +SODIUM CHLORID 0.9% 500 ML IV PRN; +SODIUM CHLORIDE 0.9% 20 ML VIAL ONE; +VASOPRESSIN 20 UNITS/ML VIAL (IVTITR) ONE; +ceFAZolin 1,000 MG/NS 100 ML IV SCH; +ePHEDrine/NS 25 MG/5 ML SYR IV ONE
[2017-07-17 08:35] LABS: AUTOMATED NEUTROPHIL # 3.7 TH/MM3 (1.8-7.7); BASOPHIL # 0.2 TH/MM3 (0-0.2); BASOPHIL % 2.7 % (0.0-2.0); BLOOD, URINE NEG (NEG); EOSINOPHIL # 0.3 TH/MM3 (0-0.4); EOSINOPHIL % 3.4 % (0.0-4.0); GLUCOSE,URINE NEG (NEG); HEMATOCRIT 40.8 % (35.0-46.0); HEMO FLAGS DIFF FINAL; KETONE, URINE NEG (NEG); LYMPH % 38.5 % (9.0-44.0); MEAN CORPUSCULAR HEMOGLOBIN 30.3 PG (27.0-34.0); MEAN CORPUSCULAR HGB CONC 33.3 % (32.0-36.0); MONO % 6.2 % (0.0-8.0); NEUT % 49.2 % (16.0-70.0); NITRITE,URINE NEG (NEG); PH, URINE 5.5 (5.0-8.5); PLATELET COUNT 221 TH/MM3 (150-450); RED BLOOD COUNT 4.48 MIL/MM3 (4.00-5.30); WHITE BLOOD COUNT 7.7 TH/MM3 (4.0-11.0)
[2017-07-17 08:42] LABS: URINE COLOR YELLOW (YELLW/STRAW); WBC, URINE 0-2 /hpf (0-5)
[2017-07-17 08:43] LABS: COMMENT (UR) CULT NOT INDICATED; CULTURE IF INDICATED CULT NOT INDICATED; METHOD OF COLLECTION CATH; SQUAMOUS EPITHELIAL CELL URINE 0-5 /hpf (0-5)
[2017-07-17 11:45] VITALS: PULSE 77
--- NOTE | 2017-07-17 12:27 | PD.OP ---
Operative Report Date of Surgery: Jul 17, 2017 Preoperative Diagnosis: (1) Perineocele (2) Cystocele with uterine descensus (3) Incomplete uterine prolapse (4) Chest heaviness (5) Dyspnea Postoperative Diagnosis: (1) Dyspnea (2) Chest heaviness (3) Perineocele (4) Cystocele with uterine descensus (5) Incomplete uterine prolapse Procedure: Lefort colpocleisis endometrial biopsy perineoplasty Anesthesia: Dr. Ybarra, pudendal block + sedation w/LMA Surgeon: Symone Owens Director [facility](s): n/a Resident Surgeon: n/a Operation and Findings: Indications: This patient has a protruding cystocele with incomplete uterine prolapse, and patulous vaginal opening. She was unable to retain a pessary. She denies urinary incontinence or difficulty evacuating bowel. Procedure: The patient was taken to the OR where she was laid supine and general anesthesia was induced with LMA used. Dr. Pennington then administered a pudendal block after the patient was placed in low stirrups with SCDs on. Betadine prep used and Cobian Catheter placed. The cervix was grasped with a single-tooth tenaculum. The cervix was dilated enough to accept a Pipelle, which yielded only a scant amount of tissue for endometrial biopsy. This was done because the uterus will be permanently inaccessible after the procedure. The prolapse repair was then mapped out such that a 5x6 cm rectangle of mucosa is removed from both the anterior and posterior vagina. This was demarcated by scoring with a #15 blade. Then saline injection was used to lift the mucosa from the underlying connective tissue. The mucosa was removed in four pieces from the anterior and posterior vaginal durant using careful and tedious dissection. Bovie cautery was used as needed to maintain hemostasis. The anterior and posterior vaginal durant were then stitched together at the superior borders of the denuded vaginal durant, taking care to avoid bunching or plication. This effectively imbricated the cervix. The right borders were also sutured together. 2-0 Vicryl was used for this. Then using 3-0 Vicryl, the anterior and posterior durant were stitched together right to left in rows, again taking care to avoid plication, with each row of sutures ending at the left borders, which were thus united. On reaching the inferior border of the denuded areas, 2-0 was again used to approximate the mucosal edges. Attention was then turned to the perineum with an inverted triangle of skin scored on the perineum. The skin within that triangle was removed. The vaginal mucosa abutting this triangle was also lifted and removed, allowing vertical closure of the defect created. Before this closure was done, the bulbocavernosi and the transverse perinei were brought together in the midline, thus re- creating the perineal body and repairing the perineocele. 2-0 Vicryl was used for this in [id number] fashion x2. The perineal skin and vaginal mucosa were then closed with 3-0 Vicryl subcuticularly in the midline, completing the repair. A long Margarita was used to make sure that a mucosal "tunnel" on each side of the repair is patent to allow drainage. Rectal exam confirmed the surgical field was flat and well-apposed, and the rectal mucosa was intact. The Cobian catheter placed in the bladder in the pre-op area was left in place throughout the procedure. The patient was awakened and transferred to the recovery room breathing on her own. Sponge, needle and instrument counts were correct. Symone Owens MD Jul 17, 2017 12:27
[2017-07-17 15:00] VITALS: BP 120/66; PULSE 77; RESP 16; TEMP 98.2; O2SAT 97
== END | disposition home or self-care (01) ==
LOC: PHSDC 06:19
PROVIDERS: ATTEND Obstetrics & Gynecology
DX: N81.81 Perineocele (principal); N81.2 Incomplete uterovaginal prolapse; R06.00 Dyspnea, unspecified; E11.9 Type 2 diabetes mellitus without complications; Z79.84 Long term (current) use of oral hypoglycemic drugs
CPT/HCPCS: 00940; 00942; 36415; 56810; 57120; 58120; 81001; 82948; 85025; 88305; J0690; J1100; J2250; J2370; J2405; J2550; J3010; J7120

== ENCOUNTER 2017-07-25 23:43 | Inpatient (IN) | payer MEDICARE, BC ==
[~2017-07-25] VITALS: Ht 162.6 cm; Wt 69.8 kg
[~2017-07-25 23:43] MED LIST changes: -ALBU6.7H INH; -AUGM875T3 PO; -CHLORHEXIDINE GLUCONATE 2 % 1 PACK (2 CLOTHS) TOPICAL PRN; -CIPR500T2 PO; -DEXAMETHASONE SOD PHOS 4 MG/ML VIAL ONE; -DIFL150T PO; -FAMOTIDINE 20 MG/2 ML VIAL ONE; -INSULIN HUMAN REGULAR 1,000 UNITS/10 ML VIAL SQ PRN; -LACTATED RINGER'S 1000 ML INJ 1,000 ML IV ONE; -LACTATED RINGER'S 1000 ML IV PRN; -MEDR4PAK PO; -METOPROLOL TARTRATE 25 MG TAB PO PRN; -MIDAZOLAM HCL 2 MG/2 ML VIAL ONE; -NITR100C4 PO; -ONDANSETRON HCL 4 MG/2 ML VIAL IV PUSH ONE; -PHENYLEPH/NS 1000 MCG/10 ML SYR IV ONE; -POVIDONE IODINE 5% (ANTISEPSIS KIT) 4 APPLICATIONS EACH NARE PRN; -PRED50 PO; -PROMETHAZINE INJ 25 MG/ML VIAL ONE; -PROPOFOL 200 MG/20 ML AMP IV ONE; -SODIUM CHLORID 0.9% 500 ML IV PRN; -SODIUM CHLORIDE 0.9% 20 ML VIAL ONE; -VASOPRESSIN 20 UNITS/ML VIAL (IVTITR) ONE; -ceFAZolin 1,000 MG/NS 100 ML IV SCH; -ePHEDrine/NS 25 MG/5 ML SYR IV ONE
[2017-07-26] VITALS (8 sets, daily range): BP systolic 104–140; BP diastolic 53–102; PULSE 75–113; RESP 16–30; TEMP 97.9–100.9; O2SAT 92–99
[2017-07-26] MEDS ORDERED: PIPERACIL-TAZO 4.5 GM PREMIX 100 ML IV SCH ×2 (00:30→07:00)
[2017-07-26] MEDS ORDERED: VANCOMYCIN 1,000 MG/NS 250 ML IV SCH ×2 (00:30)
[2017-07-26] MEDS: SODIUM CHLOR 0.9% 1000 ML INJ 1,000 ML IV SCH ×3 (00:30→14:46)
[2017-07-26] MEDS ORDERED: SODIUM CHLOR 0.9% 1000 ML INJ 1,000 ML IV SCH ×2 (01:00→03:00)
[2017-07-26] MEDS ORDERED: ACETAMINOPHEN 325 MG TAB PO SCH (01:00)
[2017-07-26] MEDS ORDERED: POTASSIUM CHLORIDE 20 MEQ CONTROLLED RELEASE TAB PO SCH (03:00)
[2017-07-26] MEDS ORDERED: GLUCAGON 1 MG/ML VIAL OTHER PRN (04:15)
[2017-07-26] MEDS ORDERED: DEXTROSE 50% IN WATER 50 ML VIAL(D50) IV PUSH PRN (04:15)
[2017-07-26 04:33] LABS: AUTOMATED NEUTROPHIL # 9.3 TH/MM3 (1.8-7.7); BASOPHIL # 0.1 TH/MM3 (0-0.2); BASOPHIL % 0.7 % (0.0-2.0); EOSINOPHIL # 0.1 TH/MM3 (0-0.4); EOSINOPHIL % 0.6 % (0.0-4.0); HEMATOCRIT 35.4 % (35.0-46.0); HEMO FLAGS AUTO DIFF; LYMPH % 5.1 % (9.0-44.0); LYMPHOCYTE # 0.5 TH/MM3 (1.0-4.8); MEAN CELL VOLUME 89.2 FL (80.0-100.0); MEAN CORPUSCULAR HEMOGLOBIN 30.1 PG (27.0-34.0); MEAN CORPUSCULAR HGB CONC 33.8 % (32.0-36.0); MONO % 4.8 % (0.0-8.0); NEUT % 88.8 % (16.0-70.0); PLATELET COUNT 182 TH/MM3 (150-450); RED BLOOD COUNT 3.97 MIL/MM3 (4.00-5.30); RED CELL DISTRIBUTION WIDTH 12.4 % (11.6-17.2); WHITE BLOOD COUNT 10.5 TH/MM3 (4.0-11.0)
[2017-07-26 04:34] LABS: PLATELET ESTIMATE SMEAR NORMAL (NORMAL); PLATELET MORPHOLOGY NORMAL (NORMAL); SCAN/DIFF AUTO DIFF CONFIRMED
[2017-07-26 04:36] LABS: ALKALINE PHOSPHATASE 61 U/L (45-117); AST (GOT) 25 U/L (15-37); BLOOD UREA NITROGEN 16 MG/DL (7-18); GLOMERULAR FILTRATION RATE 53 ML/MIN (>89)
[2017-07-26 04:37] LABS: ALT (GPT) 30 U/L (10-53); ANION GAP 10 MEQ/L (5-15); BICARBONATE 21.6 MEQ/L (21.0-32.0); CHLORIDE 106 MEQ/L (98-107); POTASSIUM 3.4 MEQ/L (3.5-5.1); SODIUM (NA) 138 MEQ/L (136-145); TOTAL BILIRUBIN ADULT 0.7 MG/DL (0.2-1.0)
[2017-07-26 04:51] LABS: BLOOD, URINE MOD (NEG); GLUCOSE,URINE 250 mg/dL (NEG); KETONE, URINE TRACE mg/dL (NEG); NITRITE,URINE NEG (NEG); PH, URINE 5.5 (5.0-8.5)
[2017-07-26 04:52] LABS: URINE COLOR YELLOW (YELLW/STRAW)
[2017-07-26 04:53] LABS: BACTERIA, URINE MOD /hpf; COMMENT (UR) CULTURE INDICATED; CULTURE IF INDICATED CULTURE INDICATED; SQUAMOUS EPITHELIAL CELL URINE 0-5 /hpf (0-5); WBC, URINE INNUM /hpf (0-5)
--- NOTE | 2017-07-26 04:58 | PD ---
HPI Chief Complaint: General Weakness Time Seen by Provider: 04:45 Travel History International Travel<30 days: No Contact w/Intl Traveler<30days: No Traveled to known affect area: No History of Present Illness HPI 86-year-old female presents to the emergency department by EMS transport from home for evaluation of generalized weakness and fever. Patient was noted by EMS to have temperature elevation of water to .6 F have episode of bilious emesis and was administered 1 L of normal saline en route. Patient was found prior to arrival to the emergency department at home sitting on her stairs unable to get up secondary to generalized weakness. Patient recently was started on Cipro antibiotic for urinary tract infection. Patient also recently had surgery 8 days ago to have repair of a cystocele and uterine prolapse. Patient underwent colpocleisis and peroneoplasty by Dr Owens. Patient has had no issues postoperatively with pain in the groin or arm perineum or buttock area. No drainage. Patient has had mild cough nonproductive and no hemoptysis as well as no shortness of breath. Patient has had no lower extremity pain or swelling. Has been reports that patient has been to a fairly well until 7 PM on evening she was going to watch TV but when she didn't return at 8 PM he went up and checked on her and identified her to have a shaking chill at that time he recommended that she go to the hospital but she refused. There has reports she went to sleep at 9 PM and then awakened around 11 or 11:30 identifying that she was sitting on the stairs and was too weak to stand. called 911 to have the patient transported to the emergency department. Patient is also diabetic but blood sugars have been well-controlled. [facility] Past Medical History Narrative Medical Diabetes dyslipidemia hypertension, bladder prolapse, uterine prolapse, colpocleisis perineoplasty cholecystectomy; no tobacco use no alcohol use; nursing notes reviewed Cancer: Yes (SKIN) Cardiovascular Problems: No High Cholesterol: Yes Diabetes: Yes Patient Takes Glucophage: Yes (GLIPIZIDE) Diminished Hearing: No Endocrine: No Genitourinary: No Hepatitis: No Hiatal Hernia: No Hypertension: Yes Immune Disorder: No Musculoskeletal: Yes (ARTHRITIS) Neurologic: No Psychiatric: No Reproductive: No Respiratory: No Thyroid Disease: No Tetanus Vaccination: Unknown Influenza Vaccination: Yes Menopausal: Yes Past Surgical History Abdominal Surgery: Yes (MULUGETA) AICD: No Cholecystectomy: Yes Genitourinary Surgery: Yes Gynecologic Surgery: Yes Joint Replacement: No Pacemaker: No Other Surgery: Yes Social History Alcohol Use: No Tobacco Use: No Substance Use: No Allergies-Medications (Allergen,Severity, Reaction): Coded Allergies: sulfamethoxazole (Verified Allergy, Severe, Nausea/Vomiting, 07/17/17) trimethoprim (Verified Allergy, Severe, Nausea/Vomiting, 07/17/17) Reported Meds & Prescriptions Reported Meds & Active Scripts Active Reported Aspirin 81 Mg Chew 81 Mg CHEW DAILY Glipizide ER (Glipizide) 2.5 Mg Ralf 2.5 Mg PO TIDAC Take with breakfast or first main meal of the day Simvastatin 40 Mg Tab 20 Mg PO HS Ramipril 5 Mg Cap 5 Mg PO DAILY Janumet (Sitagliptin-Metformin) 50-500 Mg Tab 1 Tab PO BID Atenolol 50 Mg Tab 50 Mg PO DAILY Narrative Medication Ciprofloxacin Review of Systems Except as stated in HPI: all other systems reviewed are Neg General / Constitutional: Positive: Fever, Chills HENT: No: Congestion Cardiovascular: No: Chest Pain or Discomfort Respiratory: Positive: Cough, No: Shortness of Breath Gastrointestinal: Positive: Vomiting (x1), No: Nausea, Abdominal Pain Genitourinary: No: Dysuria, Pelvic Pain, Flank Pain Musculoskeletal: No: Myalgias, Arthralgias, Cramping, Edema, Pain Skin: No Rash Neurologic: Positive: Weakness, No: Dizziness, Syncope, Focal Abnormalities, Coordination Problem Endocrine: No: Heat Intolerance Hematologic/Lymphatic: No: Easy Bruising Physical Exam Narrative GENERAL: Well-developed well-nourished female in no acute distress no respiratory distress; T:99.3f; hr:113; rr:30; bp: 140/102; o2sat 2 l/m nc 97% SKIN: Warm and dry. HEAD: Normocephalic. EYES: No scleral icterus. No injection or drainage. NECK: Supple, trachea midline. No JVD or lymphadenopathy. CARDIOVASCULAR: Regular rate and rhythm without murmurs, gallops, or rubs. RESPIRATORY: Breath sounds equal bilaterally. No accessory muscle use. GASTROINTESTINAL: Abdomen soft, non-tender, nondistended. /pelvic: No redness no induration no drainage sutures in place MUSCULOSKELETAL: No cyanosis, or edema. BACK: Nontender without obvious deformity. No CVA tenderness. Data Data Last Documented VS Vital Signs Date Time Temp Pulse Resp B/P (MAP) Pulse Ox O2 Delivery O2 Flow Rate FiO2 07/26/17 00:00 99.6 113 30 140/102 (115) 97 07/26/17 00:00 Nasal Cannula 3.00 Orders Orders Vancomycin Inj (Vancomycin Inj) (07/26/17 00:30) Piperacil-Tazo 4.5 Gm Premix (Zosyn 4.5 (07/26/17 00:30) Sodium Chlor 0.9% 1000 Ml Inj (Ns 1000 M (07/26/17 00:30) Acetaminophen (Tylenol) (07/26/17 01:00) Sodium Chlor 0.9% 1000 Ml Inj (Ns 1000 M (07/26/17 01:00) Piperacil-Tazo 4.5 Gm Premix (Zosyn 4.5 (07/26/17 07:00) Enoxaparin Inj (Lovenox Inj) (07/26/17 09:00) Pantoprazole (Protonix) (07/26/17 09:00) Dextrose 50% In Clarissa (Vial) Inj (D50w (Vi (07/26/17 04:15) Glucagon Inj (Glucagon Inj) (07/26/17 04:15) Insulin Aspart Supplemtl Scale (Novolog (07/26/17 08:00) Sodium Chlor 0.9% 1000 Ml Inj (Ns 1000 M (07/26/17 03:00) Potassium Chloride (Kcl) (07/26/17 03:00) Complete Blood Count With Diff (07/26/17 00:00) Comprehensive Metabolic Panel (07/26/17 00:00) Troponin I (07/26/17 00:00) Lactic Acid Sepsis Protocol (07/26/17 00:00) Blood Culture (07/26/17 00:00) Blood Culture (07/26/17 00:05) Labs Laboratory Tests Test 07/26/17 00:00 White Blood Count 10.5 TH/MM3 Red Blood Count 3.97 MIL/MM3 Hemoglobin 12.0 GM/DL Hematocrit 35.4 % Mean Corpuscular Volume 89.2 FL Mean Corpuscular Hemoglobin 30.1 PG Mean Corpuscular Hemoglobin Concent 33.8 % Red Cell Distribution Width 12.4 % Platelet Count 182 TH/MM3 Mean Platelet Volume 8.7 FL Neutrophils (%) (Auto) 88.8 % Lymphocytes (%) (Auto) 5.1 % Monocytes (%) (Auto) 4.8 % Eosinophils (%) (Auto) 0.6 % Basophils (%) (Auto) 0.7 % Neutrophils # (Auto) 9.3 TH/MM3 Lymphocytes # (Auto) 0.5 TH/MM3 Monocytes # (Auto) 0.5 TH/MM3 Eosinophils # (Auto) 0.1 TH/MM3 Basophils # (Auto) 0.1 TH/MM3 CBC Comment AUTO DIFF Differential Comment AUTO DIFF CONFIRMED Platelet Estimate NORMAL Platelet Morphology Comment NORMAL Red Cell Morphology Comment NORMAL Blood Urea Nitrogen 16 MG/DL Creatinine 1.00 MG/DL Random Glucose 261 MG/DL Total Protein 6.6 GM/DL Albumin 3.2 GM/DL Calcium Level 8.2 MG/DL Alkaline Phosphatase 61 U/L Aspartate Amino Transf (AST/SGOT) 25 U/L Alanine Aminotransferase (ALT/SGPT) 30 U/L Total Bilirubin 0.7 MG/DL Sodium Level 138 MEQ/L Potassium Level 3.4 MEQ/L Chloride Level 106 MEQ/L Carbon Dioxide Level 21.6 MEQ/L Anion Gap 10 MEQ/L Estimat Glomerular Filtration Rate 53 ML/MIN Lactic Acid Level 2.9 mmol/L Troponin I LESS THAN 0.02 NG/ML MDM Medical Decision Making Medical Screen Exam Complete: Yes Emergency Medical Condition: Yes Medical Record Reviewed: Yes Interpretation(s) CBC was automated differential total white cell count 10,500 but left shift of 88% normal platelet count 182,000 Lactic acid is elevated 2.6 Urinalysis abnormal cloudy innumerable white blood cells and moderate bacteria culture indicated Metabolic panel remarkable for random glucose of 260 and bicarbonate with BUN 16 and creatinine of 1.0 Chest x-ray reveals no infiltrates Differential Diagnosis Sepsis UTI pneumonia wound infection dehydration PE Narrative Course IV access obtained specimens collected and sent for resulting patient administered additional IV fluid bolus Zosyn 4.5 g and vancomycin 1 g IV piggyback administered Repeat temperature shows fever patient administered Tylenol and additional IV fluid bolus patient's case discussed with on-call medicine for admission CBC was automated differential total white cell count 10,500 but left shift of 88% normal platelet count 182,000 Lactic acid is elevated 2.6 Urinalysis abnormal cloudy innumerable white blood cells and moderate bacteria culture indicated Metabolic panel remarkable for random glucose of 260 and bicarbonate with BUN 16 and creatinine of 1.0 Chest x-ray reveals no infiltrates Discussed with Dr Hdz for admission failed outpatient therapy for UTI with sepsis Critical Care Narrative Aggregate critical care time was 35 minutes. Time to perform other separately billable procedures was not included in the critical care time. My time did not include minutes spent treating any other patients simultaneously or on activities that did not directly contribute to the patient's treatment. The services I provided to this patient were to treat and/or prevent clinically significant deterioration that could result in: septic shock, I provided critical care services requiring my management, as noted below: Chart data review, documentation time, medication orders and management, vital sign assessments/reviewing monitor data, ordering and reviewing lab tests, ordering and interpreting/reviewing x-rays and diagnostic studies, care of the patient and discussion of the patient with the admitting physicians. Sepsis Criteria SIRS Criteria (2 or more): Temp > 100.9 or < 96.8, Heart rate over 90, RR > 20 or PaCO2 < 32 Sepsis Criteria (SIRS+source): Infect source susp/known (urine) Physician Communication Physician Communication discussed with DR Hdz Diagnosis Primary Impression: Sepsis Qualified Codes: A41.9 - Sepsis, unspecified organism Additional Impression: UTI (urinary tract infection) Qualified Codes: N39.0 - Urinary tract infection, site not specified Admitting Information Admitting Physician Requests: it Makenna Arredondo MD Jul 26, 2017 04:58
[2017-07-26] MEDS ORDERED: SODIUM CHLORIDE 0.9% FLUSH 10 ML FLUSH IVF PRN (05:45)
[2017-07-26] MEDS: LOW DOSE INSULIN NOVOLOG SUPPLEMENTAL SCALE SQ SCH ×4 (08:00→20:56)
--- NOTE | 2017-07-26 08:57 | RADRPT ---
EXAM DATE/TIME: 07/26/2017 01:11 [facility] COMPARISON: CHEST SINGLE AP, January 21, 2014, 9:26. INDICATIONS : Fever MEDICAL HISTORY : None. SURGICAL HISTORY : None. ENCOUNTER: Initial ACUITY: 1 day PAIN SCORE: 0/10 LOCATION: Bilateral chest FINDINGS: A single view of the chest demonstrates the lungs to be symmetrically aerated without evidence of mas s, infiltrate or effusion. The cardiomediastinal contours are unremarkable. Osseous structures are intact with some degenerative spurring of the dorsal spine. CONCLUSION: No acute cardiopulmonary process to explain current clinical symptoms. Alan Bone MD on July 26, 2017 at 1:49 Board Certified Radiologist. This report was verified electronically.
[2017-07-26] MEDS: PANTOPRAZOLE SOD 40 MG DELAYED RELEASE TAB PO SCH (09:06)
[2017-07-26] MEDS: SODIUM CHLORIDE 0.9% FLUSH 10 ML FLUSH IV FLUSH SCH ×2 (09:06→20:56)
[2017-07-26] MEDS: ENOXAPARIN SODIUM 40 MG/0.4 ML SYRINGE SQ SCH (09:07)
[2017-07-26] MEDS ORDERED: ONDANSETRON HCL 4 MG/2 ML VIAL IV PRN (10:45)
--- NOTE | 2017-07-26 11:36 | EKG ---
Date Performed: 07/26/2017 Time Performed: 00:04:10 PTAGE: 86 years EKG: SINUS TACHYCARDIA POSSIBLE LEFT ATRIAL ENLARGEMENT BORDERLINE LEFT AXIS DEVIATION NONSPECIF IC T-WAVE ABNORMALITY ABNORMAL RHYTHM ECG Compared to prior tracing no significant change PREVIOUS TRACING : 11/25/2016 15.39 DOCTOR: Cole Lanier Interpretating Date/Time 07/26/2017 11:35:37
[2017-07-26] MEDS ORDERED: TEMAZEPAM 15 MG CAP PO PRN (14:30)
[2017-07-26] MEDS ORDERED: MAGNESIUM HYDROXIDE SUSP 30 ML CUP PO PRN (14:30)
[2017-07-26] MEDS ORDERED: DOCUSATE SODIUM 100 MG CAP PO PRN (14:30)
[2017-07-26] MEDS ORDERED: CALCIUM CARBONATE 500 MG CHEWABLE TAB CHEW PRN (14:30)
[2017-07-26] MEDS ORDERED: ACETAMINOPHEN 325 MG TAB PO PRN (14:30)
[2017-07-26] MEDS: PIPERACIL-TAZO 2.25 GM PREMIX 50 ML IV SCH ×2 (14:46→20:56)
--- NOTE | 2017-07-26 16:19 | HHI.FF ---
Face to Face Verification Diagnosis: (1) Generalized weakness (2) Sepsis (3) UTI (urinary tract infection) Physical Therapy Order: Evaluate and Treat, Improve ambulation, Strength and gait training I have seen patient Maria Luz Parekh on 07/26/17. My clinical findings support the need for the requested home health care services because: Deconditioned w/ increased weakness I certify that my clinical findings support that this patient is homebound because: Unsteady gait/balance Afshin Perez Jul 26, 2017 16:19
--- NOTE | 2017-07-26 17:38 | HHI.HP ---
[facility] Katie Rios MD Admission Diagnosis sepsis; uti Diagnoses: (1) Severe sepsis Diagnosis: Principal (2) Febrile illness Diagnosis: Principal (3) Urinary tract infection Diagnosis: Principal (4) Generalized weakness Diagnosis: Principal Chief Complaint: Profound weakness Travel History International Travel<30 Days: No Contact w/Intl Traveler <30 Da: No Traveled to Known Affected Are: No Sepsis Criteria SIRS Criteria (2 or more): Temp > 100.9 or < 96.8, Heart rate over 90 Sepsis Criteria (SIRS+source): Infect source susp/known Severe Sepsis (+one): Lactate >2 Criteria Outcome: Meets severe sepsis criteria History of Present Illness Written by Afshin Perez, acting as scribe for Dr. Bennett on 07/26/17 at 17:28. 86-year-old female known history of hypertension, hyperlipidemia, diabetes who presented to hospital because of profound weakness. Patient is in a normal state of health and is undergoing outpatient management by Dr. Owens because of recent surgery. Patient did undergo surgery on July 17, 2017 which include endometrial biopsy, perineoplasty, lefort colpocleisis. Patient was doing well and went for follow-up appointment on Saturday. At that time she was found to have a urinary tract infection. Patient was given Cipro in which she took only 1 dose after obtaining the prescription. Patient was doing well and she was with her watching TV he thought she walked out to go to the restroom, however he heard a noise and apparently she had started walking down the stairs and got significantly weak to where she fell backwards onto the stair and was trying to get herself up by holding onto the railing. That was too weak to do so. Her was not able to help her get up so they called the ambulance and she was brought to the hospital for evaluation. Patient had workup done in found to have severe sepsis criteria with low-grade fever, tachycardia, lactic acidosis, urinary tract infection. Is recommended by ER physician that the patient be admitted for further evaluation and management. The patient does admit to profound weakness, unable to stand. She did have some nausea this morning where she cannot eat any but she did have a small piece of toast. She denies any abdominal pain, diarrhea, constipation, cp , sob, also denies fevers or chills. Review of Systems Neurologic: COMPLAINS OF: Abnormal gait, Poor Balance Except as stated in HPI: all other systems reviewed are Neg Past Family Social History Past Medical History Hypertension Hyperlipidemia Diabetes Past Surgical History Cholecystectomy Lefort colpocleisis Endometrial biopsy Perineoplasty Reported Medications Reported Meds & Active Scripts Active Reported Aspirin 81 Mg Chew 81 Mg CHEW DAILY Glipizide ER (Glipizide) 2.5 Mg Ralf 2.5 Mg PO TIDAC Take with breakfast or first main meal of the day Simvastatin 40 Mg Tab 20 Mg PO HS Ramipril 5 Mg Cap 5 Mg PO DAILY Janumet (Sitagliptin-Metformin) 50-500 Mg Tab 1 Tab PO BID Atenolol 50 Mg Tab 50 Mg PO DAILY Allergies: Coded Allergies: sulfamethoxazole (Verified Allergy, Severe, Nausea/Vomiting, 07/17/17) trimethoprim (Verified Allergy, Severe, Nausea/Vomiting, 07/17/17) Family History Reviewed is significant for mother at age 62 with breast cancer, father at age 80 with stomach cancer, sister at age 54 with breast cancer Social History Patient denies any tobacco, alcohol or illicit drugs Physical Exam Vital Signs Vital Signs Date Time Temp Pulse Resp B/P (MAP) Pulse Ox O2 Delivery O2 Flow Rate FiO2 07/26/17 16:30 98.8 75 20 108/53 (71) 92 07/26/17 15:53 07/26/17 14:51 100.0 07/26/17 11:26 97 Room Air 07/26/17 11:00 99.2 89 18 109/53 (71) 97 Room Air 07/26/17 07:18 99 Nasal Cannula 2.00 07/26/17 07:14 98.8 89 18 108/53 (71) 99 Nasal Cannula 2.00 07/26/17 04:55 99 Nasal Cannula 3.00 07/26/17 04:55 100 20 104/59 (74) 99 Nasal Cannula 3.00 07/26/17 00:50 100.9 112 30 129/64 (85) 98 Nasal Cannula 3.00 07/26/17 00:00 99.6 113 30 140/102 (115) 97 07/26/17 00:00 Nasal Cannula 3.00 Physical Exam GENERAL: Well-developed, well-nourished, in no acute distress. alert and orientated HEENT: Head is normocephalic without any lesions or masses noted. Facial features are symmetric. Eyes: Pupils equal round reactive to light. Extraocular muscles are intact. Conjunctivae were clear. Oropharyngeal: Pharynx without any erythema edema. Tongue is midline without deviation. Buccal mucosa is moist without any masses or lesions NECK: Supple without any masses. Trachea midline no deviation. No JVD, no bruits are appreciated CARDIAC: Regular rhythm, regular rate. S1/S2 are heard. 2/6 ejection murmur noted, no gallops or rubs. LUNGS: Clear to auscultation bilaterally. No wheeze, rhonchi or rales. No use of accessory muscles on inspiration or expiration. ABDOMEN: Soft, nontender. Nondistended. Bowel sounds heard in all 4 quadrants. No organomegaly or masses. Negative rebound, negative guarding EXTREMITIES: No edema, pulses are equal bilaterally. No cyanosis or clubbing NEUROLOGY: Mood and affect appear appropriate. Cranial nerves II through XII grossly intact. Muscle strength 5/5 in upper and lower extremities bilaterally. Deep tendon reflexes are 2+ in upper and lower extremities bilaterally. Laboratory Laboratory Tests Test 07/26/17 00:00 07/26/17 01:35 07/26/17 03:04 White Blood Count 10.5 Red Blood Count 3.97 Hemoglobin 12.0 Hematocrit 35.4 Mean Corpuscular Volume 89.2 Mean Corpuscular Hemoglobin 30.1 Mean Corpuscular Hemoglobin Concent 33.8 Red Cell Distribution Width 12.4 Platelet Count 182 Mean Platelet Volume 8.7 Neutrophils (%) (Auto) 88.8 Lymphocytes (%) (Auto) 5.1 Monocytes (%) (Auto) 4.8 Eosinophils (%) (Auto) 0.6 Basophils (%) (Auto) 0.7 Neutrophils # (Auto) 9.3 Lymphocytes # (Auto) 0.5 Monocytes # (Auto) 0.5 Eosinophils # (Auto) 0.1 Basophils # (Auto) 0.1 CBC Comment AUTO DIFF Differential Comment AUTO DIFF CONFIRMED Platelet Estimate NORMAL Platelet Morphology Comment NORMAL Red Cell Morphology Comment NORMAL Blood Urea Nitrogen 16 Creatinine 1.00 Random Glucose 261 Total Protein 6.6 Albumin 3.2 Calcium Level 8.2 Alkaline Phosphatase 61 Aspartate Amino Transf (AST/SGOT) 25 Alanine Aminotransferase (ALT/SGPT) 30 Total Bilirubin 0.7 Sodium Level 138 Potassium Level 3.4 Chloride Level 106 Carbon Dioxide Level 21.6 Anion Gap 10 Estimat Glomerular Filtration Rate 53 Lactic Acid Level 2.9 2.0 Troponin I LESS THAN 0.02 Urine Color YELLOW Urine Turbidity CLOUDY Urine pH 5.5 Urine Specific [place] 1.022 Urine Protein 30 Urine Glucose (UA) 250 Urine Ketones TRACE Urine Occult Blood MOD Urine Nitrite NEG Urine Bilirubin NEG Urine Leukocyte Esterase LARGE Urine RBC 4-9 Urine WBC INNUM Urine Squamous Epithelial Cells 0-5 Urine Bacteria MOD Microscopic Urinalysis Comment CULTURE INDICATED Date/Time Source Procedure Growth Status 07/26/17 00:05 Blood Peripheral Aerobic Blood Culture Pending Received 07/26/17 00:05 Blood Peripheral Anaerobic Blood Culture Pending Received 07/26/17 01:35 Urine Clean Catch Urine Culture Pending Received Result Diagram: 07/26/17 0000 07/26/17 0000 Imaging Last Impressions Chest X-Ray 07/26/17 0000 Signed Impressions: Service Date/Time: Wednesday, July 26, 2017 01:11 - CONCLUSION: No acute cardiopulmonary process to explain current clinical symptoms. Alan Bone MD Septic Shock Reassessment Heart: Regular rate and rhythm, Murmur Lungs: Clear Skin: Warm, [place] Peripheral Pulses: Bounding Right Radial Bounding Left Radial Capillary Refill: Brisk, <2 seconds Caprini VTE Risk Assessment Caprini VTE Risk Assessment: Mod/High Risk (score >= 2) Caprini Risk Assessment Model Point Value = 1 Point Value = 2 Point Value = 3 Point Value = 5 Age 41-60 Minor surgery BMI > 25 kg/m2 Swollen legs Varicose veins or History of unexplained or recurrent spontaneous Oral contraceptives or hormone replacement Sepsis (< 1 month) Serious lung disease, including pneumonia (< 1 month) Abnormal pulmonary function Acute myocardial infarction Congestive heart failure (< 1 month) History of inflammatory bowel disease Medical patient at bed rest Age 61-74 Arthroscopic surgery Major open surgery (> 45 min) Laparoscopic surgery (> 45 min) Malignancy Confined to bed (> 72 hours) Immobilizing plaster cast Central venous access Age >= 75 History of VTE Family history of VTE Factor V Leiden Prothrombin [id number] Lupus anticoagulant Anticardiolipin antibodies Elevated serum homocysteine Heparin-induced thrombocytopenia Other congenital or acquired thrombophilia Stroke (< 1 month) Elective arthroplasty Hip, pelvis, or leg fracture Acute spinal cord injury (< 1 month) Prophylaxis Regimen Total Risk Factor Score Risk Level Prophylaxis Regimen 0-1 Low Early ambulation 2 Moderate Order ONE of the following: *Sequential Compression Device (SCD) *Heparin 5000 units SQ BID 3-4 Higher Order ONE of the following medications: *Heparin 5000 units SQ TID *Enoxaparin/Lovenox 40 mg SQ daily (WT < 150 kg, CrCl > 30 mL/min) *Enoxaparin/Lovenox 30 mg SQ daily (WT < 150 kg, CrCl > 10-29 mL/min) *Enoxaparin/Lovenox 30 mg SQ BID (WT < 150 kg, CrCl > 30 mL/min) AND/OR *Sequential Compression Device (SCD) 5 or more Highest Order ONE of the following medications: *Heparin 5000 units SQ TID (Preferred with Epidurals) *Enoxaparin/Lovenox 40 mg SQ daily (WT < 150 kg, CrCl > 30 mL/min) *Enoxaparin/Lovenox 30 mg SQ daily (WT < 150 kg, CrCl > 10-29 mL/min) *Enoxaparin/Lovenox 30 mg SQ BID (WT < 150 kg, CrCl > 30 mL/min) AND *Sequential Compression Device (SCD) Assessment and Plan Assessment and Plan Severe sepsis, Patient presented with profound weakness, febrile illness, tachycardia, lactic acidosis, urine tract infection, Patient was given vancomycin and Zosyn in the emergency department Patient was given 2 L normal saline bolus Patient's symptoms have improved. Patient still with low-grade fever, lactic acid has returned to normal Urinary tract infection, complicated Could be secondary to recent surgical procedure Patient continued on Zosyn Continue monitor urine culture for appropriate antibiotics Profound weakness, likely secondary to the above Physical therapy consulted for recommendations. Case management consulted for home health care physical therapy, nursing care Diabetes Accu-Cheks with sliding scale insulin Hypertension, hyperlipidemia Continue home medications DVT prevention Sequential compression devices This note was transcribed by arturo Perez . I, Dr. Mk Whitaker personally performed the history, physical exam, and medical decision making; and confirmed the accuracy of the information in the transcribed note. Authenticated by Dr. Mk Whitaker on 07/26/17 at 17:42. Discussed Condition With Patient, family at bedside ( and son) Physician Certification 2 Midnight Certification Type: Admission for Inpatient Services Order for Inpatient Services The services are ordered in accordance with Medicare regulations or non- Medicare payer requirements, as applicable. In the case of services not specified as inpatient-only, they are appropriately provided as inpatient services in accordance with the 2-midnight benchmark. Estimated LOS (days): 2 days is the estimated time the patient will need to remain in the hospital, assuming treatment plan goals are met and no additional complications. Post-Hospital Plan: Not yet determined Afshin Perez Jul 26, 2017 17:38 Mk Gaines MD Jul 26, 2017 17:50
[2017-07-26] MEDS ORDERED: PRAVASTATIN SOD 40 MG TAB PO SCH (21:00)
[2017-07-27 01:44] VITALS: BP 110/66; PULSE 80; RESP 14; TEMP 98; O2SAT 94
[2017-07-27] MEDS: PIPERACIL-TAZO 2.25 GM PREMIX 50 ML IV SCH ×3 (02:32→12:42)
[2017-07-27 04:17] VITALS: RESP 20
[2017-07-27] MEDS: SODIUM CHLOR 0.9% 1000 ML INJ 1,000 ML IV SCH (04:47)
[2017-07-27 07:11] LABS: AUTOMATED NEUTROPHIL # 4.9 TH/MM3 (1.8-7.7); BASOPHIL % 0.6 % (0.0-2.0); EOSINOPHIL # 0.2 TH/MM3 (0-0.4); EOSINOPHIL % 2.5 % (0.0-4.0); HEMATOCRIT 30.6 % (35.0-46.0); HEMO FLAGS DIFF FINAL; LYMPH % 21.3 % (9.0-44.0); LYMPHOCYTE # 1.5 TH/MM3 (1.0-4.8); MEAN CELL VOLUME 91.1 FL (80.0-100.0); MEAN CORPUSCULAR HEMOGLOBIN 30.2 PG (27.0-34.0); MEAN CORPUSCULAR HGB CONC 33.1 % (32.0-36.0); MONO % 7.2 % (0.0-8.0); NEUT % 68.4 % (16.0-70.0); PLATELET COUNT 177 TH/MM3 (150-450); RED BLOOD COUNT 3.36 MIL/MM3 (4.00-5.30); RED CELL DISTRIBUTION WIDTH 12.7 % (11.6-17.2); WHITE BLOOD COUNT 7.1 TH/MM3 (4.0-11.0)
[2017-07-27 07:31] LABS: BICARBONATE 22.8 MEQ/L (21.0-32.0); MAGNESIUM 1.9 MG/DL (1.5-2.5)
[2017-07-27 07:36] LABS: POTASSIUM 2.8 MEQ/L (3.5-5.1)
[2017-07-27] MEDS: LOW DOSE INSULIN NOVOLOG SUPPLEMENTAL SCALE SQ SCH ×2 (08:00→12:00)
[2017-07-27] MEDS ORDERED: NS + KCL 20 MEQ INJ 1,000 ML IV SCH (08:15)
[2017-07-27] MEDS ORDERED: MAGNESIUM OXIDE 400 MG TAB PO ONE (08:15)
[2017-07-27] MEDS ORDERED: POTASSIUM CHLORIDE 20 MEQ CONTROLLED RELEASE TAB PO ONE (08:15)
[2017-07-27] MEDS: ENOXAPARIN SODIUM 40 MG/0.4 ML SYRINGE SQ SCH (08:24)
[2017-07-27 08:29] VITALS: BP 125/71; PULSE 81; RESP 16; TEMP 97.1; O2SAT 98
[2017-07-27] MEDS: PANTOPRAZOLE SOD 40 MG DELAYED RELEASE TAB PO SCH (09:00)
[2017-07-27] MEDS ORDERED: RAMIPRIL 5 MG CAP PO SCH (09:00)
[2017-07-27] MEDS: SODIUM CHLORIDE 0.9% FLUSH 10 ML FLUSH IV FLUSH SCH (09:00)
[2017-07-27] MEDS ORDERED: ATENOLOL 50 MG TAB PO SCH (09:00)
[2017-07-27] MEDS ORDERED: ASPIRIN 81 MG CHEW TAB CHEW SCH (09:00)
[2017-07-27 13:33] VITALS: BP 113/71; PULSE 72; RESP 16; TEMP 97.8; O2SAT 97
[2017-07-27] MEDS ORDERED: AUGM875T3 PO (13:55)
--- NOTE | 2017-07-27 14:16 | HHI.PR ---
Subjective Remarks Patient states that she feels much better Denies fevers or chills Denies nausea vomiting Complaints of poor appetite Denies abdominal pain Objective Vitals Vital Signs Date Time Temp Pulse Resp B/P (MAP) Pulse Ox O2 Delivery O2 Flow Rate FiO2 07/27/17 13:33 97.8 72 16 113/71 (85) 97 07/27/17 08:29 97.1 81 16 125/71 (89) 98 07/27/17 04:17 20 07/27/17 01:44 98.0 80 14 110/66 (81) 94 07/26/17 23:01 21 07/26/17 20:02 97.9 77 16 108/57 (74) 92 07/26/17 16:30 98.8 75 20 108/53 (71) 92 07/26/17 15:53 07/26/17 14:51 100.0 I/O 07/26/17 07/26/17 07/26/17 07/27/17 07/27/17 07/27/17 07:00 15:00 23:00 07:00 15:00 23:00 Intake Total 2000 ml 1100 ml 100 ml 1420 ml 225 ml Output Total 200 ml Balance 2000 ml 900 ml 100 ml 1420 ml 225 ml Intake Oral 120 ml IV Total 2000 ml 1100 ml 100 ml 1300 ml 225 ml Output Emesis 200 ml # Voids 1 2 1 Result Diagram: 07/27/17 0556 07/27/17 0556 Imaging Last Impressions Chest X-Ray 07/26/17 0000 Signed Impressions: Service Date/Time: Wednesday, July 26, 2017 01:11 - CONCLUSION: No acute cardiopulmonary process to explain current clinical symptoms. Alan Bone MD Objective Remarks AAOx3 clear lungs BL S1S2 RRR soft abdomen with bowel sounds present no edema in lower extremities Medications and IVs Current Medications Medications (Trade) Dose Ordered Sig/Nabila Route Start Time Stop Time Status Last Admin (Lovenox Inj) 40 mg DAILY SQ 07/26/17 09:00 07/27/17 08:24 (Protonix) 40 mg DAILY PO 07/26/17 09:00 07/27/17 09:00 (D50w (Vial) Inj) 50 ml UNSCH PRN IV PUSH 07/26/17 04:15 (Glucagon Inj) 1 mg UNSCH PRN OTHER 07/26/17 04:15 (NovoLOG SUPPLEMENTAL SCALE) 1 ACHS SLIDING SCALE SQ 07/26/17 08:00 07/27/17 12:00 (NS Flush) 2 ml BID IV FLUSH 07/26/17 09:00 07/26/17 20:56 (NS Flush) 2 ml UNSCH PRN IVF 07/26/17 05:45 Piperacillin Sod/ Tazobactam Sod 50 ml @ 200 mls/hr Q6H IV 07/26/17 14:00 07/27/17 12:42 (Zofran Inj) 4 mg Q4H PRN IV 07/26/17 10:45 07/26/17 10:50 (Tylenol) 650 mg Q4H PRN PO 07/26/17 14:30 (Colace) 100 mg BID PRN PO 07/26/17 14:30 (Milk Of Magnesia Liq) 30 ml DAILY PRN PO 07/26/17 14:30 (Tums Chew) 1,000 mg TID PRN CHEW 07/26/17 14:30 (Restoril) 15 mg HS PRN PO 07/26/17 14:30 (Aspirin Chew) 81 mg DAILY CHEW 07/27/17 09:00 07/27/17 08:24 (Tenormin) 50 mg DAILY PO 07/27/17 09:00 07/27/17 08:24 (Altace) 5 mg DAILY PO 07/27/17 09:00 07/27/17 08:24 (Pravachol) 40 mg HS PO 07/26/17 21:00 07/26/17 20:56 A/P Problem List: (1) Severe sepsis ICD Code: A41.9 - Sepsis, unspecified organism; R65.20 - Severe sepsis without septic shock Status: Resolved Plan: Present on admission Seems to have resolved. Status post vancomycin and IV Zosyn emergency department. Treated with 2 L of IV normal saline lows in the emergency department and nontender fluids in the form of normal saline. Fevers resolved, no further low-grade fevers in the last 24 hours. Blood cultures negative 1. Urine culture is growing gram-negative rods. We'll possibly DC home on by mouth Augmentin. Sharlene Menezes our nurse coordinator will follow up blood cultures. If bacteria resistant to Augmentin then will call patient's pharmacy with correct antibiotic. Discussed with patient. (2) Febrile illness ICD Code: R50.9 - Fever, unspecified Status: Resolved Plan: No further fevers in the last 24 hrs. (3) Urinary tract infection ICD Code: N39.0 - Urinary tract infection, site not specified Plan: As above (4) Generalized weakness ICD Code: R53.1 - Weakness Plan: evaluated by PT - Will DC home with home health. (5) Hypokalemia ICD Code: E87.6 - Hypokalemia Status: Acute Plan: Replace with KCL IV and oral potassium. Will recheck a BMP level at 4 pm. (6) HTN (hypertension) ICD Code: I10 - Essential (primary) hypertension Plan: Bp stable. Continue Atenolol, ramipril. (7) Diabetes mellitus with hyperglycemia ICD Code: E11.65 - Type 2 diabetes mellitus with hyperglycemia Plan: Will resume home Janumet and Glipizide. Continue SSi with insulin Novolog Discharge Planning Possible DC if K normal. Problem Qualifiers (1) Urinary tract infection: Qualified Codes: N30.00 - Acute cystitis without hematuria (2) HTN (hypertension): Qualified Codes: I10 - Essential (primary) hypertension (3) Diabetes mellitus with hyperglycemia: Qualified Codes: E11.65 - Type 2 diabetes mellitus with hyperglycemia Mk Gaines MD Jul 27, 2017 14:16
[2017-07-27 17:02] LABS: POTASSIUM 3.5 MEQ/L (3.5-5.1)
[2017-07-27 17:08] LABS: BICARBONATE 23.8 MEQ/L (21.0-32.0)
[2017-07-27 17:56] VITALS: BP 145/84; PULSE 68; RESP 16; TEMP 97.8; O2SAT 96
--- NOTE | 2017-07-27 18:12 | HHI.DS ---
Discharge Summary Admission Date Jul 26, 2017 at 05:34 Discharge Date: Jul 27, 2017 Admitting Diagnosis sepsis; uti (1) Severe sepsis ICD Code: A41.9 - Sepsis, unspecified organism; R65.20 - Severe sepsis without septic shock Status: Resolved (2) Febrile illness ICD Code: R50.9 - Fever, unspecified Status: Resolved (3) Urinary tract infection ICD Code: N39.0 - Urinary tract infection, site not specified (4) Generalized weakness ICD Code: R53.1 - Weakness (5) Hypokalemia ICD Code: E87.6 - Hypokalemia Status: Acute (6) HTN (hypertension) ICD Code: I10 - Essential (primary) hypertension (7) Diabetes mellitus with hyperglycemia ICD Code: E11.65 - Type 2 diabetes mellitus with hyperglycemia Brief History - From Admission Written by Afshin Perez, acting as scribe for Dr. Bennett on 07/26/17 at 17:28. 86-year-old female known history of hypertension, hyperlipidemia, diabetes who presented to hospital because of profound weakness. Patient is in a normal state of health and is undergoing outpatient management by Dr. Owens because of recent surgery. Patient did undergo surgery on July 17, 2017 which include endometrial biopsy, perineoplasty, lefort colpocleisis. Patient was doing well and went for follow-up appointment on Saturday. At that time she was found to have a urinary tract infection. Patient was given Cipro in which she took only 1 dose after obtaining the prescription. Patient was doing well and she was with her watching TV he thought she walked out to go to the restroom, however he heard a noise and apparently she had started walking down the stairs and got significantly weak to where she fell backwards onto the stair and was trying to get herself up by holding onto the railing. That was too weak to do so. Her was not able to help her get up so they called the ambulance and she was brought to the hospital for evaluation. Patient had workup done in found to have severe sepsis criteria with low-grade fever, tachycardia, lactic acidosis, urinary tract infection. Is recommended by ER physician that the patient be admitted for further evaluation and management. The patient does admit to profound weakness, unable to stand. She did have some nausea this morning where she cannot eat any but she did have a small piece of toast. She denies any abdominal pain, diarrhea, constipation, cp , sob, also denies fevers or chills. CBC/BMP: 07/27/17 0556 07/27/17 1615 Significant Findings Laboratory Tests Test 07/26/17 00:00 07/26/17 01:35 07/26/17 03:04 07/27/17 05:56 Red Blood Count 3.97 MIL/MM3 (4.00-5.30) 3.36 MIL/MM3 (4.00-5.30) Neutrophils (%) (Auto) 88.8 % (16.0-70.0) Lymphocytes (%) (Auto) 5.1 % (9.0-44.0) Neutrophils # (Auto) 9.3 TH/MM3 (1.8-7.7) Lymphocytes # (Auto) 0.5 TH/MM3 (1.0-4.8) Random Glucose 261 MG/DL (74-106) 154 MG/DL (74-106) Albumin 3.2 GM/DL (3.4-5.0) Calcium Level 8.2 MG/DL (8.5-10.1) 7.6 MG/DL (8.5-10.1) Potassium Level 3.4 MEQ/L (3.5-5.1) 2.8 MEQ/L (3.5-5.1) Estimat Glomerular Filtration Rate 53 ML/MIN (>89) 85 ML/MIN (>89) Lactic Acid Level 2.9 mmol/L (0.4-2.0) Troponin I LESS THAN 0.02 NG/ML Urine Turbidity CLOUDY (CLEAR) Urine Protein 30 mg/dL (NEG-TRACE) Urine Glucose (UA) 250 mg/dL (NEG) Urine Ketones TRACE mg/dL (NEG) Urine Occult Blood MOD (NEG) Urine Leukocyte Esterase LARGE (NEG) Urine RBC 4-9 /hpf (0-3) Urine WBC INNUM /hpf (0-5) Urine Bacteria MOD /hpf (NONE) Hemoglobin 10.1 GM/DL (11.6-15.3) Hematocrit 30.6 % (35.0-46.0) Chloride Level 110 MEQ/L (98-107) Total Protein 5.1 GM/DL (6.4-8.2) Test 07/27/17 16:15 Random Glucose 145 MG/DL (74-106) Calcium Level 8.0 MG/DL (8.5-10.1) Chloride Level 111 MEQ/L (98-107) Estimat Glomerular Filtration Rate 87 ML/MIN (>89) Imaging Last Impressions Chest X-Ray 07/26/17 0000 Signed Impressions: Service Date/Time: Wednesday, July 26, 2017 01:11 - CONCLUSION: No acute cardiopulmonary process to explain current clinical symptoms. Alan Bone MD PE at Discharge AAOx3 clear lungs BL S1S2 RRR soft abdomen with bowel sounds present no edema in lower extremities Pt Condition on Discharge: Stable Discharge Disposition: Discharge Home Discharge Time: > 30 minutes Discharge Instructions DIET: Follow Instructions for: Diabetic Diet Activities you can perform: Regular-No Restrictions Activities to Avoid: Prolonged Standing, Strenuous Activity Follow up Referrals: PCP Follow-up - 1 Week New Medications: Amoxicillin-Clavulanate (Augmentin) 875-125 Mg Tab 1 TAB PO BID for Infection, #20 TAB 0 Refills Continued Medications: Aspirin (Aspirin) 81 Mg Chew 81 MG CHEW DAILY, TAB 0 Refills Atenolol (Atenolol) 50 Mg Tab 50 MG PO DAILY for Blood Pressure Management, #30 TAB 0 Refills Glipizide ER (Glipizide ER) 2.5 Mg Ralf 2.5 MG PO TIDAC for Blood Sugar Management, #30 TAB 0 Refills Take with breakfast or first main meal of the day Ramipril (Ramipril) 5 Mg Cap 5 MG PO DAILY, #30 CAP 0 Refills Simvastatin (Simvastatin) 40 Mg Tab 20 MG PO HS for Cholesterol Management, #30 TAB 0 Refills Sitagliptin-Metformin (Janumet) 50-500 Mg Tab 1 TAB PO BID for Blood Sugar Management, #60 TAB 0 Refills Mk Gaines MD Jul 27, 2017 18:12
[2017-07-27] MEDS ORDERED: POTASSIUM CHLORIDE 10 MEQ CONTROLLED RELEASE TAB PO ONE (19:00)
== END 2017-07-27 18:59 | disposition home health service (06) | DRG 872 ==
LOC: PHED 23:43 → PHEDA 07-26 05:34 → PH3A 07-26 15:48
PROVIDERS: ADMIT Internal Medicine; ATTEND Hospitalist
DX: A41.9 Sepsis, unspecified organism (principal); E87.2 Acidosis; N39.0 Urinary tract infection, site not specified; E11.65 Type 2 diabetes mellitus with hyperglycemia; E78.5 Hyperlipidemia, unspecified; E87.6 Hypokalemia; R53.1 Weakness; I10 Essential (primary) hypertension; R65.20 Severe sepsis without septic shock; B96.89 Other specified bacterial agents as the cause of diseases classified elsewhere; Z79.84 Long term (current) use of oral hypoglycemic drugs; Z88.3 Allergy status to other anti-infective agents; Z88.2 Allergy status to sulfonamides
CPT/HCPCS: 71010; 80048; 80053; 81001; 82948; 83605; 83735; 84155; 84484; 85025; 87040; 87077; 87086; 87186; 93005; 96360; 96361; J1650; J1815; J2405; J2543; J3480; J7030

== ENCOUNTER → 2018-03-11 | Outpatient (CLI) | payer MEDICARE, BC ==
[~2018-03-11] MED LIST changes: +ASPI-516 CHEW; -ASPI81CH CHEW; +AUGM875T3 PO
[2018-03-11 10:38] LABS: AUTOMATED NEUTROPHIL # 4.3 TH/MM3 (1.8-7.7); BASOPHIL # 0.1 TH/MM3 (0-0.2); BASOPHIL % 0.9 % (0.0-2.0); EOSINOPHIL # 0.2 TH/MM3 (0-0.4); EOSINOPHIL % 2.6 % (0.0-4.0); LYMPH % 41.9 % (9.0-44.0); LYMPHOCYTE # 3.8 TH/MM3 (1.0-4.8); MEAN CELL VOLUME 91.3 FL (80.0-100.0); MEAN CORPUSCULAR HEMOGLOBIN 31.2 PG (27.0-34.0); MEAN CORPUSCULAR HGB CONC 34.2 % (32.0-36.0); MEAN PLATELET VOLUME 9.3 FL (7.0-11.0); MONO % 6.3 % (0.0-8.0); MONOCYTE # 0.6 TH/MM3 (0-0.9); NEUT % 48.3 % (16.0-70.0); PLATELET COUNT 226 TH/MM3 (150-450); RED BLOOD COUNT 4.49 MIL/MM3 (4.00-5.30); RED CELL DISTRIBUTION WIDTH 13.4 % (11.6-17.2)
[2018-03-11 10:47] LABS: AST (GOT) 21 U/L (15-37); BLOOD UREA NITROGEN 13 MG/DL (7-18); CALCIUM 9.4 MG/DL (8.5-10.1); CHLORIDE 106 MEQ/L (98-107); CREATININE 0.92 MG/DL (0.50-1.00); GLOMERULAR FILTRATION RATE 58 ML/MIN (>89); GLUCOSE,FASTING 188 MG/DL (74-99); SODIUM (NA) 140 MEQ/L (136-145)
[2018-03-11 10:48] LABS: ALT (GPT) 31 U/L (10-53); CHOLESTEROL 122 MG/DL (120-200); TRIGLYCERIDES 134 MG/DL (42-150)
[2018-03-11 10:57] LABS: ALKALINE PHOSPHATASE 53 U/L (45-117); CHOLESTEROL/ HDL RATIO 1.93 RATIO; FREE T4 0.94 NG/DL (0.76-1.46); LDL CHOLESTEROL 32 MG/DL (0-99); TOTAL BILIRUBIN ADULT 0.8 MG/DL (0.2-1.0); TOTAL PROTEIN 6.9 GM/DL (6.4-8.2)
[2018-03-11 14:20] LABS: BILIRUBIN, URINE NEG (NEG); BLOOD, URINE NEG (NEG); GLUCOSE,URINE NEG (NEG); KETONE, URINE NEG (NEG); MUCUS URINE FEW /lpf (OCC); NITRITE,URINE NEG (NEG); SQUAMOUS EPITHELIAL CELL URINE 8 /hpf (0-5); URINE COLOR YELLOW (YELLW/STRAW); URINE LEUKOCYTE ESTERASE LARGE (NEG)
[2018-03-11 17:15] LABS: HEMOGLOBIN A1C 8.2 % (4.3-6.0)
== END ==
LOC: PLAB 07:00
PROVIDERS: ATTEND Family Medicine
DX: E11.9 Type 2 diabetes mellitus without complications (principal); E78.5 Hyperlipidemia, unspecified; I10 Essential (primary) hypertension
CPT/HCPCS: 36415; 80053; 80061; 81001; 82043; 83036; 84439; 84443; 85025